=== PATIENT | male | born 1925 | race Caucasian/White ===

== ENCOUNTER 2017-05-06 08:15 | Inpatient (IN) | payer MEDICARE ==
[2017-05-06 09:08] LABS: #Lymphocytes 0.5 thou/uL (1.20-3.40); #Monocytes 0.4 thou/uL (0.11-0.59); #Neutrophils 5.7 thou/uL (1.40-6.50); %Basophils 0.1 % (0.0-1.0); %Eosinophils 0.2 % (0.0-10.0); %Lymphocytes 7.1 % (21.0-51.0); %Monocytes 6.4 % (0.0-10.0); %Neutrophils 86.2 % (42.0-75.0); Hemoglobin 9.4 g/dL (14.0-18.0); Mean Corpuscular Hemoglobin 32.1 pg (27.0-31.0); Mean Corpuscular Volume 97.4 fl (80.0-94.0); Platelet Count 121 thou/uL (130-400); Red Blood Cell (RBC) Count 2.91 mill/uL (4.70-6.10); White Blood Cell (WBC) Count 6.6 thou/uL (4.8-10.8)
[2017-05-06 09:18] LABS: INR-International Normal Ratio 3.6; PTT 61.4 SEC (22.9-36.1); Prothrombin Time 37.6 SEC (12.0-14.7)
[2017-05-06 09:26] LABS: ALT (SGPT) 24 U/L (8-55); AST (SGOT) 32 U/L (5-34); Albumin 3.5 g/dL (3.4-4.8); Alkaline Phosphatase 81 U/L (40-150); Anion Gap 17 mmol/L (10-20); BUN (Urea Nitrogen) 30 mg/dL (8.4-25.7); Bilirubin, Total 0.7 mg/dL (0.2-1.2); CK (CPK) 278 U/L (30-200); Calc. Creatinine Clearance 0 mL/min (70-130); Carbon Dioxide 20 mmol/L (23-31); Chloride 106 mmol/L (98-107); Estimated GFR-MDRD 40; Globulin 3.2 g/dL (2.4-3.5); Glucose 137 mg/dL (83-110); Potassium 3.9 mmol/L (3.5-5.1); Protein, Total 6.7 g/dL (5.8-8.1); Sodium 139 mmol/L (136-145)
[2017-05-06 09:31] LABS: CKMB 4.4 ng/mL (0-6.6); Troponin I 0.292 ng/mL (< 0.028)
--- NOTE | 2017-05-06 09:48 | RAD ---
AP VIEW OF THE CHEST: INDICATIONS: Cough. FINDINGS: There is somewhat increased air space opacity within the retrocardiac left lower lobe with blunting o f the left costophrenic angle. There are patchy opacities within the right lung base. Heart size is at the upper limits of normal. Pulmonary vasculature is within normal limits. No acute osseous abn ormality is evident. IMPRESSION: 1. Patchy opacities involving both lung bases, left greater than right. Suspicion for a small left pleural effusion. Findings may reflect sequela of bibasilar pneumonia with a parapneumonic left-side d effusion. Would recommend a two view radiograph for further evaluation. 2. Stable mild cardiomegaly, when compared to prior study dated 01/31/2016. POS: [facility]
[2017-05-06] MEDS ORDERED: Azithromycin 500 MG in Sodium Chloride 0.9% 250 ML 250 ML IVPB ONE (11:15)
[2017-05-06 11:55] LABS: Bilirubin Negative (Negative); Blood, Urine Negative (Negative); Clarity CLEAR (Clear); Glucose, Urine (Dipstick) Negative (Negative); Leukocyte Negative (Negative); Nitrite Negative (Negative); Protein, Urine (Dipstick) Negative (Neg-Trace); Specific Gravity, Urine 1.018 (1.002-1.036); Urobilinogen 0.2 mg/dL (0.2-1.0); pH, Urine 5.5 (5.0-9.0)
[2017-05-06 12:42] LABS: Troponin I 0.363 ng/mL (< 0.028)
[2017-05-06 15:36] LABS: Lactic Acid 1.5 mmol/L (0.5-2.2)
[2017-05-06 16:02] LABS: Troponin I 0.624 ng/mL (< 0.028)
[2017-05-06] MEDS ORDERED: Bisacodyl 5 MG TAB PO PRN (18:14)
[2017-05-06] MEDS ORDERED: Acetaminophen 325 MG TAB PO PRN (18:14)
[2017-05-06] MEDS ORDERED: cefTRIAXone\\ROCEPHIN 1 GM in Sodium Chloride 0.9% 100 ML IVPB SCH (18:14)
[2017-05-06] MEDS ORDERED: Ondansetron ODT 4 MG TAB PO PRN (18:14)
[2017-05-06] MEDS ORDERED: Nitroglycerin 0.4 MG TAB (25 Tab Bottle) PO PRN (18:14)
[2017-05-06] MEDS ORDERED: Ondansetron HCl/PF 4 MG/2 ML Vial IVP PRN (18:14)
[2017-05-06] MEDS ORDERED: Acetaminophen 650 MG Suppository PR PRN (18:14)
[2017-05-06 18:16] VITALS: BMI 23.4
--- NOTE | 2017-05-06 18:31 | HP ---
PRIMARY CARE PHYSICIAN: Dr. Magaña. PRIMARY LENDING ACTIVITIES SUPERVISOR: Dr. Monatnez CHIEF COMPLAINT: Feeling bad and prolonged cough. HISTORY OF PRESENT ILLNESS: This is an 89-year-old white male with a known history of congestive hea rt failure; ischemic cardiomyopathy with inoperable coronary artery disease; atrial fibrillation, on Coumadin anticoagulation, who presents with progressive cough over about 1 month. He reports that it was just niggling until the last couple of weeks he has been getting significantly worse and product francisco of clear sputum. The patient decided to take some [id number] cough medicine over the weeke . After he took that an hour later he developed nausea, feeling really bad, and then he has just b een continuing to feel bad since then. Today, he reports that he continued to have the cough, but no nausea and just felt bad. He was unable to describe what he meant by feeling bad. He had been feel ing a little weaker than normal over the last couple of weeks, so he came into the emergency room. I n the ER, he was found to be hypoxic on room air and saturating initially 82% and came up well with n connie cannula oxygen. He was also found to be in rapid ventricular rate with a heart rate of 125. He was afebrile. Chest x-ray showed patchy opacities in bilateral lungs, left greater than right, susp icion for a small left pleural effusion. This is consistent with bibasilar pneumonia, mild cardiomeg aldo, and no evidence of pulmonary edema. The patient was given ceftriaxone and azithromycin in the e mergency room. His heart rate came down to 85 with the oxygen. No rate control meds had to be given . PAST MEDICAL HISTORY: 1. Chronic systolic congestive heart failure with an ejection fraction of 15% to 20%, most recent ec hocardiogram from 01/2016. 2. Coronary artery disease with 100% occlusion of LAD, nonoperable per previous cardiology notes. M edically managed. 3. Chronic atrial fibrillation, on Coumadin. 4. Hypertension. 5. Hyperlipidemia. 6. Hypothyroidism. PAST SURGICAL HISTORY: Skin cancer excision, bilateral inguinal hernia repair. ALLERGIES: No known drug allergies. MEDICATIONS: The patient does not have his current medications with him at this time. Reviewing fro m the computer. He has most recently been on, 1. Hydralazine 25 mg 3 times a day. 2. Warfarin 5 mg daily, except on Friday, Friday, and Friday when he takes 7.5. 3. Valsartan 80 mg daily. 4. Flomax 0.4 mg daily. 5. Aldactone 25 mg daily. 6. Ranexa 1000 mg twice a day. 7. Omeprazole 20 mg daily. 8. Nitrostat 0.4 mg every 5 minutes as needed for chest pain. 9. Synthroid 25 mcg daily. 10. Imdur ER 30 mg daily. 11. Furosemide 40 mg twice a day. 12. Ferrous sulfate 325 mg daily. 13. Carvedilol 6.25 mg twice a day. 14. Atorvastatin 40 mg at night. 15. Aspirin 81 mg daily. SOCIAL HISTORY: The patient lives at home, ambulates with the help of the cane. No tobacco, alcohol or illicit drug use. FAMILY HISTORY: Heart disease in older age. REVIEW OF SYSTEMS: CONSTITUTIONAL: He had some fevers and chills in the last few days, but never took his temperature. EYES: No double vision or blurred vision. HEENT: He has had congestion and drainage worse over the last few days, dry but not sore throat. CARDIOVASCULAR: No chest pain. No palpitations that he has noted. PULMONARY: See HPI. No significant shortness of breath in the emergency room, now on oxygen. GASTROINTESTINAL: No abdominal pain, nausea over the weekend as per HPI, none currently. No diarrhe a or constipation. GENITOURINARY: No dysuria or hematuria. MUSCULOSKELETAL: No specifically worse muscle aches or joint pains. SKIN: No rashes or other lesions noted. NEUROLOGIC: Some generalized weakness, but no focal weakness. No numbness or tingling. PHYSICAL EXAMINATION: VITAL SIGNS: Blood pressure 111/59, pulse 85, respirations 26, O2 sat 98% on says room air, but he i s actually on oxygen currently, temperature 98.2. GENERAL: This is a well-developed, well-nourished white male, in no acute distress. EYES: Pupils are equal, round, and reactive to light. 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 ENT: Nares clear. Oropharynx clear without lesions, erythema, or exudate. NECK: Supple, no lymphadenopathy, no thyroid nodules or enlargement, no JVD. HEART: Irregularly irregular rhythm, controlled rate currently. No murmurs. LUNGS: No wheezes, crackles, or rhonchi. Moving air well throughout. No increased work of breathin g on the oxygen. ABDOMEN: Nontender to palpation, normoactive bowel sounds, no hepatosplenomegaly or other masses. S oft to palpation. EXTREMITIES: No clubbing or cyanosis. He does have 1+ pitting edema in bilateral lower extremities. The patient states actually good for him and he gets a lot worse if he gets fluid overloaded. SKIN: No rashes or other lesions noted. NEUROLOGIC: He has intact strength in all extremities and no facial droop. LABORATORY DATA: CBC with hemoglobin of 9.4 with an MCV mildly high at 97. This is consistent with his baseline hemoglobin, no leukocytosis, platelet count mildly low at 121. Coagulation profile show s an INR of 3.6. Complete metabolic panel was notable for creatinine of 1.63. This is above his pre vious baseline usually around 1.2-1.3 range, creatinine is normal. Creatinine kinase is 278. CK-MB is normal. First troponin was 0.29, repeat was 0.36. Brain natriuretic peptide is 2700, which is el evated thousand more than his last admission. Urinalysis negative. Chest x-ray: I did review the c [facility] x-ray along with the radiologist's report see HPI for results. EKG: I did review the EKG done in the emergency room, it does show atrial fibrillation at a rate of 97 beats per minute with some le ft bundle branch block. This is a change from his incomplete left bundle branch block in 2016 and wa s also normal sinus rhythm per previous ER note. This is a change from his previous EKG which showed incomplete left bundle branch block per 2016 ER note. Now, I am unable to pull up the old EKG at th is time. ASSESSMENT AND PLAN: 1. Community-acquired pneumonia with hypoxia and put patient on Rocephin, azithromycin, and continue oxygen. We will give him nebs as needed. 2. Chronic systolic congestive heart failure with likely exacerbation given his elevated BNP and hyp oxia. This might be due to worsening renal function. For now, we will fluid restrict him and we viki l give him his oral Lasix as well, knows his blood pressure could tolerate any further more aggressiv e diuresis other than this. Also, have Dr. Clayton sees patient for Dr. Montanez and see if he wants to try more aggressive diuresis. We will put patient on fluid restriction and salt restriction and mallory vogt will do strict I's and O's and daily weights. Given the patient's rapid heart rate, we will go ahe ad and continue his carvedilol along with his nitrates and Ranexa. 3. Coronary artery disease, chronic. 4. Non-ST elevation myocardial infarction. Dr. Clayton has been consulted and knows about the increa sing troponin. The patient by history is nonoperable and we will likely has to medically managed. Marie vogt has already received aspirin in the emergency room. 5. Atrial fibrillation with rapid ventricular rate, this has improved, with control of his hypoxia. We will continue patient's chronic medications. He is supratherapeutic on his Coumadin, so hold fredrick t for now and check daily INRs and resume his Coumadin when his level comes back down to between 2 an d 3. 6. GI prophylaxis, put patient on Pepcid twice a day. 7. Deep venous thrombosis prophylaxis. The patient is already anticoagulated. 8. Code status. I did discuss with the patient. He is a FULL CODE should he be incapacitated. His son would be his medical decision maker his name, Pepe Urbina.
[2017-05-06] MEDS ORDERED: Carvedilol 6.25 MG TAB PO SCH (19:30)
--- NOTE | 2017-05-06 20:52 | CON ---
DATE OF CONSULTATION: 05/06/2017 PRIMARY BRAKE COUPLER DINKEY: Dr. Montanez. REASON FOR CONSULTATION: Elevated troponins and heart failure. HISTORY OF PRESENT ILLNESS: Mr. Urbina is a very pleasant 89-year-old white gentleman who comes to [facility] for increased cough and shortness of breath. He has a significant history of ischemic ca rdiomyopathy, not amenable to any revascularization at that time with EF of about 20%. He stated for the last few days he has been complaining of a progressive cough productive of clear sputum. He too k some cough medicine and did not really help, just got worse, so decided to come in for evaluation. He was found to have what appears to be multifocal pneumonia and admitted for further evaluation and care. His BNP is much higher than what it has been in the past. The patient has also had subjectiv e fevers. PAST MEDICAL HISTORY: 1. Severe chronic systolic heart failure, EF of about 15-20%. 2. Severe multivessel coronary artery disease, inoperable and non-revascularizable. 3. Chronic atrial fibrillation on full anticoagulation, on Coumadin. 4. Hypertension. 5. Hyperlipidemia. 6. Hypothyroidism. PAST SURGICAL HISTORY: 1. Skin cancer excision. 2. Bilateral inguinal hernia repair. OUTPATIENT MEDICATIONS: 1. Hydralazine 25 mg t.i.d. 2. Warfarin. 3. Valsartan 80 mg a day. 4. Flomax 0.4 mg a day. 5. Aldactone 25 mg a day. 6. Ranexa 1000 mg twice a day. 7. Omeprazole. 8. Nitroglycerin sublingual. 9. Synthroid 25 mcg a day. 10. Imdur 30 mg a day. 11. Lasix 40 mg twice a day. 12. Ferrous sulfate. 13. Carvedilol 6.25 b.i.d. 14. Atorvastatin 40 mg a day. 15. Aspirin 81 a day. ALLERGIES: No known drug allergies. SOCIAL HISTORY: No alcohol, tobacco or drugs. FAMILY HISTORY: Noncontributory. REVIEW OF SYSTEMS: A 12-point review of systems was done and is all negative unless stated in the hi story of present illness. PHYSICAL EXAMINATION: VITAL SIGNS: Temperature 98.5, pulse 81, respiratory rate 24, satting 100% on 2 liters, blood pressu re 130/76. GENERAL: Awake, alert, oriented x3, in no distress. HEENT: Normocephalic, atraumatic. NECK: Supple. LUNGS: Lungs have bilateral crackles. CARDIOVASCULAR: S1, S2, no S3 or S4, no murmurs. ABDOMEN: Soft, positive bowel sounds. EXTREMITIES: Trace edema. SKIN: Warm and dry. LABORATORY WORK: Reviewed. White count of 6, hemoglobin 9.4, hematocrit 28, platelet count 121. Co ags were INR is 3.6. Chemistries remarkable only for a BUN of 30, creatinine 1.63, which is a little higher than his baseline. Troponin was 0.3 and then 0.6. BNP was 2760, baseline is around 500, it has been as high as 2200 in the past with exacerbations. Lactic acid was normal. UA was unremarkabl e. EKG was reviewed. ASSESSMENT AND PLAN: 1. Acute on chronic systolic heart failure. 2. Multilobar pneumonia. 3. Ischemic cardiomyopathy, severe. 4. Severe dilated cardiomyopathy, ejection fraction of of 15-20%. PLAN: 1. I would give IV Lasix for the next 1 or 2 days. We will see how he does in the next couple of da ys, he probably is somewhat volume overload. 2. IV antibiotics per primary team. 3. We will continue to follow.
[2017-05-06] MEDS: Docusate 100 MG CAP PO SCH (21:33)
[2017-05-06] MEDS: Famotidine 20 MG TAB PO SCH (21:33)
[2017-05-07 05:38] LABS: Anion Gap 15 mmol/L (10-20); BUN (Urea Nitrogen) 36 mg/dL (8.4-25.7); Calc. Creatinine Clearance 31 mL/min (70-130); Calcium 8.7 mg/dL (7.8-10.44); Carbon Dioxide 20 mmol/L (23-31); Chloride 107 mmol/L (98-107); Estimated GFR-MDRD 40; Glucose 127 mg/dL (83-110); Potassium 3.8 mmol/L (3.5-5.1); Sodium 138 mmol/L (136-145)
[2017-05-07 05:48] LABS: #Lymphocytes 0.5 thou/uL (1.20-3.40); #Monocytes 0.4 thou/uL (0.11-0.59); #Neutrophils 3.4 thou/uL (1.40-6.50); %Eosinophils 0.2 % (0.0-10.0); %Lymphocytes 11.2 % (21.0-51.0); %Monocytes 9.4 % (0.0-10.0); %Neutrophils 79.3 % (42.0-75.0); Hemoglobin 8.3 g/dL (14.0-18.0); Mean Corpuscular HGB CONC 33.6 g/dL (32.0-36.0); Mean Corpuscular Hemoglobin 32.8 pg (27.0-31.0); Mean Corpuscular Volume 97.7 fl (80.0-94.0); Mean Platelet Volume 10.2 fL (7.4-10.4); Platelet Count 104 thou/uL (130-400); Red Blood Cell (RBC) Count 2.53 mill/uL (4.70-6.10); White Blood Cell (WBC) Count 4.3 thou/uL (4.8-10.8)
[2017-05-07] MEDS: Furosemide 40 MG/4 ML VIAL SLOW IVP SCH ×2 (06:07→13:21)
[2017-05-07 06:22] LABS: Prothrombin Time 44.7 SEC (12.0-14.7)
[2017-05-07 06:43] LABS: INR-International Normal Ratio 4.4
--- NOTE | 2017-05-07 08:08 | PDOC.PN ---
- Subjective Encounter Start Date: 05/07/17 Encounter Start Time: 09:00 Subjective: Patient feeling a bit better. SOB improved. Cough a bit better. - Objective Resuscitation Status: Resuscitation Status FULL:Full Resuscitation MAR Reviewed: Yes Vital Signs & Weight: Vital Signs (12 hours) Temp Pulse Resp BP BP Pulse Ox 05/07/17 07:18 97.7 F 74 18 119/74 93 L 05/07/17 03:57 97.6 F 65 24 H 113/69 93 L 05/07/17 00:08 98.9 F 80 24 H 124/70 90 L 05/06/17 23:14 99 05/06/17 21:33 121/69 Weight Weight 156 lb 8 oz I&O: 05/06/17 05/07/17 05/08/17 06:59 06:59 06:59 Intake Total 524 Output Total 250 Balance 274 Result Diagrams: 05/07/17 05:06 05/07/17 05:06 Phys Exam - Physical Examination Constitutional: NAD HEENT: moist MMs bibasilar crackles and rhonchi, good air movement, off O2 and no SOB Cardiovascular: no significant murmur, irregular Gastrointestinal: soft, non-tender, positive bowel sounds Neurological: non-focal, moves all 4 limbs Psychiatric: normal affect, A&O x 3 Deviation from normal: large scabbed lesion on right ear- skin cancer per patient Dx/Plan (1) Pneumonia Code(s): J18.9 - PNEUMONIA, UNSPECIFIED ORGANISM Status: Acute Qualifiers: Laterality: bilateral Lung location: lower lobe of lung Comment: Rocephin and Azithromycin beginning 05/06/17 (2) Systolic CHF, acute on chronic Code(s): I50.23 - ACUTE ON CHRONIC SYSTOLIC (CONGESTIVE) HEART FAILURE Status : Acute Comment: IV diuretics, Dr. Clayton following (3) Ischemic cardiomyopathy Code(s): I25.5 - ISCHEMIC CARDIOMYOPATHY Status: Acute (4) CAD (coronary artery disease) Code(s): I25.10 - ATHSCL HEART DISEASE OF [place] CORONARY ARTERY W/O ANG PCTRS Status: Chronic Qualifiers: Coronary Disease-Associated Artery/Lesion type: [place] artery Comment: Completely occluded LAD, inoperable (5) Atrial fibrillation Code(s): I48.91 - UNSPECIFIED ATRIAL FIBRILLATION Status: Chronic Qualifiers: Atrial fibrillation type: chronic Qualified Code(s): I48.2 - Chronic atrial fibrillation (6) Anticoagulant long-term use Code(s): Z79.01 - PAPER TESTER (CURRENT) USE OF ANTICOAGULANTS Status: Chronic Comment: Supratherapeutic, holding Coumadin (7) Acute on chronic renal failure Code(s): N17.9 - ACUTE KIDNEY FAILURE, UNSPECIFIED; N18.9 - CHRONIC KIDNEY DISEASE, UNSPECIFIED Status: Acute Comment: stable - Plan cont current plan of care, continue antibiotics, PT/OT, DVT proph w/SCDs Improving, doing well on room air. If continues to improve can switch to -: oral antibiotics tomorrow and d/c when ok with cardiology. * . - Discharge Day Encounter end time: 09:30
[2017-05-07] MEDS: Carvedilol 6.25 MG TAB PO SCH ×2 (08:48→17:30)
[2017-05-07] MEDS: Docusate 100 MG CAP PO SCH ×2 (08:49→21:17)
[2017-05-07] MEDS ORDERED: Furosemide 40 MG TAB PO SCH (09:00)
[2017-05-07] MEDS ORDERED: Enoxaparin Sodium 40 MG/0.4 ML SYRINGE SC SCH (09:00)
[2017-05-07] MEDS ORDERED: cefTRIAXone\\ROCEPHIN 1 GM, Syringe 0.4 ML in Sterile Water 9.6 ML SLOW IVP SCH (11:00)
--- NOTE | 2017-05-07 12:52 | PDOC.CTH ---
Cardiology Progress Note - Subjective No new issues. - Objective Vital Signs Temp Pulse Pulse Pulse Resp BP BP 05/07/17 11:20 97.6 F 62 23 H 05/07/17 10:00 66 70 100/54 L 05/07/17 08:48 119/74 05/07/17 08:00 97.7 F 74 18 05/07/17 07:18 97.7 F 74 18 05/07/17 03:57 97.6 F 65 24 H BP BP Pulse Ox 05/07/17 11:20 103/55 L 92 L 05/07/17 10:00 101/59 L 05/07/17 08:48 05/07/17 08:00 93 L 05/07/17 07:18 119/74 93 L 05/07/17 03:57 113/69 93 L Weight 156 lb 8 oz 05/06/17 05/07/17 05/08/17 06:59 06:59 06:59 Intake Total 524 Output Total 250 Balance 274 - Physical Examination General/Neuro: NAD Neck: no JVD present Lungs: other: (bilat crackles. ) Heart: other: Abdomen: soft Extremities: other: (no edema) - Telemetry Telemetry Rhythm: Afib HR 90's. - Labs Result Diagrams: 05/07/17 05:06 05/07/17 05:06 Troponin/CKMB CK-MB (CK-2) 4.4 ng/mL (0-6.6) 05/06/17 08:58 Troponin I 0.624 ng/mL (< 0.028) H* 05/06/17 15:10 - Assessment/Plan 1. Multilobar pneumonia 2. Acute on chronic systolic heart failure. 3. Severe ischemic CM EF at 15-20% 4. Chronic afib. 5. Multivessel CAD non revascularizable. PLAN: - Continue IV lasix. - Continue other meds - IV abx per primary team.
[2017-05-07] MEDS ORDERED: Azithromycin 500 MG in Sodium Chloride 0.9% 250 ML 250 ML IVPB SCH (13:00)
[2017-05-07] MEDS ORDERED: diphenhydrAMINE 25 MG CAP PO PRN (14:21)
[2017-05-07] MEDS: Chloraseptic Spray 180 ml Bottle PO PRN ×3 (15:20→21:17)
[2017-05-07] MEDS: Famotidine 20 MG TAB PO SCH (21:17)
[2017-05-08 05:01] LABS: Prothrombin Time 48.5 SEC (12.0-14.7)
[2017-05-08 05:08] LABS: #Lymphocytes 0.6 thou/uL (1.20-3.40); #Monocytes 0.5 thou/uL (0.11-0.59); #Neutrophils 4.2 thou/uL (1.40-6.50); %Eosinophils 0.3 % (0.0-10.0); %Lymphocytes 10.8 % (21.0-51.0); %Monocytes 10.1 % (0.0-10.0); %Neutrophils 78.9 % (42.0-75.0); Hemoglobin 8.5 g/dL (14.0-18.0); Mean Corpuscular HGB CONC 34.1 g/dL (32.0-36.0); Mean Corpuscular Hemoglobin 33.2 pg (27.0-31.0); Mean Corpuscular Volume 97.4 fl (80.0-94.0); Mean Platelet Volume 10.5 fL (7.4-10.4); Platelet Count 110 thou/uL (130-400); RBC Distribution Width 12.2 % (11.5-14.5); Red Blood Cell (RBC) Count 2.55 mill/uL (4.70-6.10); White Blood Cell (WBC) Count 5.3 thou/uL (4.8-10.8)
[2017-05-08 05:17] LABS: INR-International Normal Ratio 4.9
[2017-05-08 05:20] LABS: Anion Gap 15 mmol/L (10-20); BUN (Urea Nitrogen) 47 mg/dL (8.4-25.7); Calc. Creatinine Clearance 24 mL/min (70-130); Calcium 8.5 mg/dL (7.8-10.44); Carbon Dioxide 21 mmol/L (23-31); Chloride 105 mmol/L (98-107); Estimated GFR-MDRD 30; Glucose 105 mg/dL (83-110); Potassium 3.8 mmol/L (3.5-5.1); Sodium 137 mmol/L (136-145)
[2017-05-08] MEDS: Furosemide 40 MG/4 ML VIAL SLOW IVP SCH ×2 (05:50→13:22)
[2017-05-08] MEDS ORDERED: Acetaminophen 325 MG TAB PO PRN (07:27)
--- NOTE | 2017-05-08 07:30 | PDOC.PN ---
- Subjective Encounter Start Date: 05/08/17 Encounter Start Time: 09:00 Subjective: Continued severe cough. Very weak and will need rehab/PT before discharge. -: No fever. No sig SOB. Sating well on room air. - Objective Resuscitation Status: Resuscitation Status FULL:Full Resuscitation MAR Reviewed: Yes Vital Signs & Weight: Vital Signs (12 hours) Temp Pulse Resp BP Pulse Ox 05/08/17 03:39 98.0 F 71 20 115/77 95 05/07/17 23:29 97.9 F 64 24 H 117/68 95 05/07/17 22:16 71 16 98 05/07/17 20:04 97.9 F 64 24 H 98 Weight Weight 156 lb 8 oz I&O: 05/07/17 05/08/17 05/09/17 06:59 06:59 06:59 Intake Total 524 184 Output Total 250 750 Balance 274 -566 Result Diagrams: 05/08/17 04:29 05/08/17 04:29 Phys Exam - Physical Examination Constitutional: NAD HEENT: moist MMs Respiratory: no wheezing, no rhonchi multiple coughing fits in room, mild coarse breath sounds in bases Cardiovascular: RRR Gastrointestinal: soft Neurological: non-focal, moves all 4 limbs Psychiatric: normal affect, A&O x 3 Deviation from normal: skin cancer to right ear Dx/Plan (1) Pneumonia Code(s): J18.9 - PNEUMONIA, UNSPECIFIED ORGANISM Status: Acute Qualifiers: Laterality: bilateral Lung location: lower lobe of lung Comment: Rocephin and Azithromycin beginning 05/06/17, switch to oral abx 05/08/17 (2) Systolic CHF, acute on chronic Code(s): I50.23 - ACUTE ON CHRONIC SYSTOLIC (CONGESTIVE) HEART FAILURE Status : Acute Comment: IV diuretics, Dr. Clayton following (3) Ischemic cardiomyopathy Code(s): I25.5 - ISCHEMIC CARDIOMYOPATHY Status: Acute (4) CAD (coronary artery disease) Code(s): I25.10 - ATHSCL HEART DISEASE OF [place] CORONARY ARTERY W/O ANG PCTRS Status: Chronic Qualifiers: Coronary Disease-Associated Artery/Lesion type: [place] artery Comment: Completely occluded LAD, inoperable (5) Atrial fibrillation Code(s): I48.91 - UNSPECIFIED ATRIAL FIBRILLATION Status: Chronic Qualifiers: Atrial fibrillation type: chronic Qualified Code(s): I48.2 - Chronic atrial fibrillation (6) Anticoagulant long-term use Code(s): Z79.01 - INTERMEDIATE (CURRENT) USE OF ANTICOAGULANTS Status: Chronic Comment: Supratherapeutic, holding Coumadin, trending up inspite of no meds (7) Acute on chronic renal failure Code(s): N17.9 - ACUTE KIDNEY FAILURE, UNSPECIFIED; N18.9 - CHRONIC KIDNEY DISEASE, UNSPECIFIED Status: Acute Comment: creatinine starting to bump, consider switch back to oral diuretics - Plan cont current plan of care, continue antibiotics, PT/OT Will need rehab/SNF before home. * . - Discharge Day Encounter end time: 09:30
[2017-05-08] MEDS: Carvedilol 6.25 MG TAB PO SCH ×2 (08:44→16:23)
[2017-05-08] MEDS: Spironolactone 25 MG TAB PO SCH (08:45)
[2017-05-08] MEDS: Azithromycin 250 MG TAB PO SCH (08:45)
[2017-05-08] MEDS: Tamsulosin HCl 0.4 MG CAP PO SCH (08:45)
[2017-05-08] MEDS: Docusate 100 MG CAP PO SCH ×2 (08:45→21:15)
[2017-05-08] MEDS: Cefdinir 300 MG CAP PO SCH ×2 (08:45→21:16)
[2017-05-08] MEDS: Chloraseptic Spray 180 ml Bottle PO PRN (08:55)
[2017-05-08] MEDS ORDERED: Levothyroxine Sodium 25 MCG TAB PO SCH (11:00)
[2017-05-08] MEDS: Famotidine 20 MG TAB PO SCH (21:16)
[2017-05-08] MEDS: guaiFENesin ER 600 MG TAB PO SCH (21:17)
[2017-05-08] MEDS: Atorvastatin Calcium 40 MG TAB PO SCH (21:18)
[2017-05-09 05:20] LABS: Prothrombin Time 44.1 SEC (12.0-14.7)
[2017-05-09 05:30] LABS: INR-International Normal Ratio 4.4
[2017-05-09] MEDS ORDERED: Levothyroxine Sodium 25 MCG TAB PO SCH (06:00)
[2017-05-09] MEDS ORDERED: Carvedilol 3.125 MG TAB PO SCH (09:15)
[2017-05-09 09:25] LABS: Anion Gap 17 mmol/L (10-20); BUN (Urea Nitrogen) 44 mg/dL (8.4-25.7); Calc. Creatinine Clearance 26 mL/min (70-130); Calcium 8.7 mg/dL (7.8-10.44); Carbon Dioxide 17 mmol/L (23-31); Chloride 104 mmol/L (98-107); Estimated GFR-MDRD 32; Glucose 110 mg/dL (83-110); Potassium 4.4 mmol/L (3.5-5.1); Sodium 134 mmol/L (136-145)
[2017-05-09] MEDS: Tamsulosin HCl 0.4 MG CAP PO SCH (09:33)
[2017-05-09] MEDS: Docusate 100 MG CAP PO SCH ×2 (09:33→21:04)
[2017-05-09] MEDS: Cefdinir 300 MG CAP PO SCH ×2 (09:34→21:06)
[2017-05-09] MEDS: Spironolactone 25 MG TAB PO SCH (09:34)
[2017-05-09] MEDS: Azithromycin 250 MG TAB PO SCH (09:34)
[2017-05-09] MEDS: guaiFENesin ER 600 MG TAB PO SCH ×2 (09:34→21:06)
--- NOTE | 2017-05-09 10:02 | PDOC.PN ---
- Subjective Encounter Start Date: 05/09/17 Encounter Start Time: 10:01 Subjective: Seen and examined -flipped into R.Afib this morning - Objective Resuscitation Status: Resuscitation Status FULL:Full Resuscitation Vital Signs & Weight: Vital Signs (12 hours) Temp Pulse Resp BP Pulse Ox 05/09/17 07:20 97.5 F L 140 H 20 100/69 97 05/09/17 03:53 97.8 F 72 22 H 115/70 92 L 05/08/17 23:56 97.8 F 67 26 H 108/66 95 Weight Weight 159 lb I&O: 05/08/17 05/09/17 05/10/17 06:59 06:59 06:59 Intake Total 524 1234 Output Total 250 752 Balance 274 482 Result Diagrams: 05/08/17 04:29 05/09/17 09:00 Phys Exam - Physical Examination Constitutional: NAD HEENT: PERRLA, moist MMs, sclera anicteric, TM's clear Neck: no nodes, no JVD, supple, full ROM Respiratory: no wheezing, no rales, no rhonchi, clear to auscultation bilateral Cardiovascular: no significant murmur, no rub, irregular Gastrointestinal: soft, non-tender, no distention, positive bowel sounds Dx/Plan (1) Acute on chronic renal failure Code(s): N17.9 - ACUTE KIDNEY FAILURE, UNSPECIFIED; N18.9 - CHRONIC KIDNEY DISEASE, UNSPECIFIED Status: Acute Comment: creatinine starting to bump, consider switch back to oral diuretics (2) Ischemic cardiomyopathy Code(s): I25.5 - ISCHEMIC CARDIOMYOPATHY Status: Acute (3) Pneumonia Code(s): J18.9 - PNEUMONIA, UNSPECIFIED ORGANISM Status: Acute Qualifiers: Laterality: bilateral Lung location: lower lobe of lung Comment: Rocephin and Azithromycin beginning 05/06/17, switch to oral abx 05/08/17 (4) Systolic CHF, acute on chronic Code(s): I50.23 - ACUTE ON CHRONIC SYSTOLIC (CONGESTIVE) HEART FAILURE Status : Acute Comment: IV diuretics, Dr. Clayton following (5) Anticoagulant long-term use Code(s): Z79.01 - APPLICATION INTEGRATOR (CURRENT) USE OF ANTICOAGULANTS Status: Chronic Comment: Supratherapeutic, holding Coumadin, trending up inspite of no meds (6) Atrial fibrillation Code(s): I48.91 - UNSPECIFIED ATRIAL FIBRILLATION Status: Chronic Qualifiers: Atrial fibrillation type: chronic Qualified Code(s): I48.2 - Chronic atrial fibrillation (7) CAD (coronary artery disease) Code(s): I25.10 - ATHSCL HEART DISEASE OF [place] CORONARY ARTERY W/O ANG PCTRS Status: Chronic Qualifiers: Coronary Disease-Associated Artery/Lesion type: [place] artery Comment: Completely occluded LAD, inoperable - Plan plan discussed w/ family, PT/OT, social service coordinator INR trending down -: Rehab evaluation today -: Cardiology following * .
[2017-05-09] MEDS: Benzonatate 100 MG CAP PO PRN ×2 (11:53→21:05)
[2017-05-09] MEDS: Carvedilol 3.125 MG TAB PO SCH (16:24)
[2017-05-09] MEDS: Famotidine 20 MG TAB PO SCH (21:06)
[2017-05-09] MEDS: Atorvastatin Calcium 40 MG TAB PO SCH (21:06)
[2017-05-10 05:11] LABS: INR-International Normal Ratio 3.2; Prothrombin Time 34.4 SEC (12.0-14.7)
[2017-05-10 07:56] LABS: Actual Bicarbonate (HCO3a) 19.2 mEq/L (22-26); CO2 Tension 36.6 mmHg (35.0-45.0); Calcium, Ionized 1.1 mmol/L (1.12-1.30); Hematocrit-ABG 33.3 % (42.0-52.0); O2 Tension (PaO2) 63.7 mmHg (80.0-100.0); pH, Arterial 7.34 (7.35-7.45)
[2017-05-10 07:57] LABS: Puncture Site RBA
[2017-05-10] MEDS ORDERED: Furosemide 40 MG/4 ML VIAL SLOW IVP SCH ×2 (08:00→10:45)
[2017-05-10] MEDS ORDERED: Morphine 4 MG/ML VIAL ONE (08:18)
[2017-05-10 08:30] LABS: #Lymphocytes 1.4 thou/uL (1.20-3.40); #Monocytes 0.7 thou/uL (0.11-0.59); #Neutrophils 9.4 thou/uL (1.40-6.50); %Eosinophils 0.1 % (0.0-10.0); %Lymphocytes 11.9 % (21.0-51.0); %Monocytes 5.8 % (0.0-10.0); %Neutrophils 82.2 % (42.0-75.0); Mean Corpuscular Hemoglobin 31.5 pg (27.0-31.0); Mean Corpuscular Volume 98.3 fl (80.0-94.0); Mean Platelet Volume 10.7 fL (7.4-10.4); Platelet Count 189 thou/uL (130-400); RBC Distribution Width 12.6 % (11.5-14.5); White Blood Cell (WBC) Count 11.5 thou/uL (4.8-10.8)
[2017-05-10 08:51] LABS: Anion Gap 16 mmol/L (10-20); BUN (Urea Nitrogen) 47 mg/dL (8.4-25.7); Calc. Creatinine Clearance 25 mL/min (70-130); Calcium 9.1 mg/dL (7.8-10.44); Carbon Dioxide 21 mmol/L (23-31); Chloride 102 mmol/L (98-107); Estimated GFR-MDRD 31; Glucose 143 mg/dL (83-110); Sodium 135 mmol/L (136-145)
[2017-05-10] MEDS ORDERED: Nitroglycerin 2% Ointment 1 INCH/1 GM Packet TOP SCH (09:00)
[2017-05-10] MEDS ORDERED: Furosemide 40 MG/4 ML VIAL ONE (09:09)
[2017-05-10 09:11] LABS: CKMB 7.1 ng/mL (0-6.6); Troponin I 0.723 ng/mL (< 0.028)
[2017-05-10] MEDS: Spironolactone 25 MG TAB PO SCH (09:14)
[2017-05-10] MEDS: Azithromycin 250 MG TAB PO SCH (09:14)
[2017-05-10] MEDS: guaiFENesin ER 600 MG TAB PO SCH ×2 (09:14→22:17)
[2017-05-10] MEDS: Tamsulosin HCl 0.4 MG CAP PO SCH (09:14)
[2017-05-10] MEDS: Carvedilol 3.125 MG TAB PO SCH ×2 (09:14→17:09)
[2017-05-10] MEDS: Cefdinir 300 MG CAP PO SCH ×2 (09:14→22:17)
[2017-05-10] MEDS: Docusate 100 MG CAP PO SCH ×2 (09:14→22:17)
--- NOTE | 2017-05-10 10:02 | RAD ---
FRONTAL VIEW CHEST: COMPARISON: 05/06/17. CLINICAL HISTORY: Respiratory distress. FINDINGS: There is a patchy density of the right lower lung zone. Interstitial prominence of each lung present . The cardiac silhouette is stable. Prior left basilar opacity has improved. IMPRESSION: 1. Interval improvement of prior left basilar opacity. 2. Development of a patchy opacity of the right lower lung zone. Continued followup is recommended as findings could either relate to areas of shift in edema or a newly developing area of pneumonia. POS: [facility]
--- NOTE | 2017-05-10 10:44 | PDOC.PN ---
- Subjective Encounter Start Date: 05/10/17 Encounter Start Time: 10:42 Subjective: Seen and examined on ventimask-earlier hypoxic episodes noted -: will address code status today - Objective Resuscitation Status: Resuscitation Status FULL:Full Resuscitation Vital Signs & Weight: Vital Signs (12 hours) Temp Pulse Pulse Pulse Resp Resp Resp 05/10/17 08:10 98.6 F 100 36 H 05/10/17 07:51 05/10/17 07:24 100 100 36 H 32 H 05/10/17 07:20 100 36 H 05/10/17 07:10 98.6 F 100 20 05/10/17 03:31 97.8 F 72 22 H 05/09/17 23:17 97.5 F L 75 22 H BP BP BP Pulse Ox Pulse Ox Pulse Ox 05/10/17 08:10 05/10/17 07:51 95 05/10/17 07:24 109/74 127/77 93 L 97 05/10/17 07:20 05/10/17 07:10 125/80 93 L 05/10/17 03:31 111/53 L 98 05/09/17 23:17 119/68 94 L Weight Weight 158 lb 3.2 oz I&O: 05/09/17 05/10/17 05/11/17 06:59 06:59 06:59 Intake Total 1234 750 Output Total 752 400 Balance 482 350 Result Diagrams: 05/10/17 07:48 05/10/17 07:48 Additional Labs: Accuchecks 05/10/17 07:28 POC Glucose 147 H Phys Exam - Physical Examination Constitutional: NAD ventimask HEENT: moist MMs, sclera anicteric Neck: no nodes, no JVD, supple, full ROM Respiratory: no wheezing, no rales, no rhonchi, clear to auscultation bilateral Cardiovascular: RRR, no significant murmur, no rub Gastrointestinal: soft, non-tender, no distention, positive bowel sounds Musculoskeletal: no edema, pulses present Neurological: normal sensation, moves all 4 limbs Dx/Plan (1) Acute on chronic renal failure Code(s): N17.9 - ACUTE KIDNEY FAILURE, UNSPECIFIED; N18.9 - CHRONIC KIDNEY DISEASE, UNSPECIFIED Status: Acute Comment: creatinine starting to bump, consider switch back to oral diuretics (2) Ischemic cardiomyopathy Code(s): I25.5 - ISCHEMIC CARDIOMYOPATHY Status: Acute (3) Pneumonia Code(s): J18.9 - PNEUMONIA, UNSPECIFIED ORGANISM Status: Acute Qualifiers: Laterality: bilateral Lung location: lower lobe of lung Comment: Rocephin and Azithromycin beginning 05/06/17, switch to oral abx 05/08/17 (4) Systolic CHF, acute on chronic Code(s): I50.23 - ACUTE ON CHRONIC SYSTOLIC (CONGESTIVE) HEART FAILURE Status : Acute Comment: IV diuretics, Dr. Clayton following (5) Anticoagulant long-term use Code(s): Z79.01 - RETIREMENT (CURRENT) USE OF ANTICOAGULANTS Status: Chronic Comment: Supratherapeutic, holding Coumadin, trending up inspite of no meds (6) Atrial fibrillation Code(s): I48.91 - UNSPECIFIED ATRIAL FIBRILLATION Status: Chronic Qualifiers: Atrial fibrillation type: chronic Qualified Code(s): I48.2 - Chronic atrial fibrillation (7) CAD (coronary artery disease) Code(s): I25.10 - ATHSCL HEART DISEASE OF [place] CORONARY ARTERY W/O ANG PCTRS Status: Chronic Qualifiers: Coronary Disease-Associated Artery/Lesion type: [place] artery Comment: Completely occluded LAD, inoperable - Plan PT/OT, social welfare research worker, DVT proph w/lovenox Diuresis--CXR -: Address code status-pt wants CPR/Breathing machine for "short term only" -: d/c plan on hold -: will leave him as full code for now * .
[2017-05-10] MEDS ORDERED: Morphine 4 MG/ML VIAL IV SCH (10:45)
[2017-05-10] MEDS: Famotidine 20 MG TAB PO SCH (22:17)
[2017-05-10] MEDS: Atorvastatin Calcium 40 MG TAB PO SCH (22:18)
[2017-05-11 06:27] LABS: INR-International Normal Ratio 3.4; Prothrombin Time 35.6 SEC (12.0-14.7)
--- NOTE | 2017-05-11 07:22 | PDOC.PN ---
- Subjective Encounter Start Date: 05/11/17 Encounter Start Time: 07:21 Subjective: seen and examined feeling a little bit better - Objective Resuscitation Status: Resuscitation Status FULL:Full Resuscitation Vital Signs & Weight: Vital Signs (12 hours) Temp Pulse Resp BP Pulse Ox 05/11/17 04:05 96.8 F L 66 20 119/73 98 05/10/17 23:43 98.5 F 72 18 113/71 92 L 05/10/17 19:53 97.1 F L 75 20 120/73 98 Weight Weight 153 lb 11.2 oz I&O: 05/10/17 05/11/17 05/12/17 06:59 06:59 06:59 Intake Total 750 820 Output Total 400 1 Balance 350 819 Result Diagrams: 05/10/17 07:48 05/10/17 07:48 Additional Labs: Accuchecks 05/10/17 07:28 POC Glucose 147 H Phys Exam - Physical Examination Constitutional: NAD HEENT: PERRLA, moist MMs, sclera anicteric, TM's clear Neck: no nodes, no JVD, supple, full ROM Respiratory: no wheezing, no rales, no rhonchi, clear to auscultation bilateral Cardiovascular: RRR, no significant murmur, no rub Gastrointestinal: soft, non-tender, no distention, positive bowel sounds Musculoskeletal: no edema, pulses present Dx/Plan (1) Acute on chronic renal failure Code(s): N17.9 - ACUTE KIDNEY FAILURE, UNSPECIFIED; N18.9 - CHRONIC KIDNEY DISEASE, UNSPECIFIED Status: Acute Comment: creatinine starting to bump, consider switch back to oral diuretics (2) Ischemic cardiomyopathy Code(s): I25.5 - ISCHEMIC CARDIOMYOPATHY Status: Acute (3) Pneumonia Code(s): J18.9 - PNEUMONIA, UNSPECIFIED ORGANISM Status: Acute Qualifiers: Laterality: bilateral Lung location: lower lobe of lung Comment: Rocephin and Azithromycin beginning 05/06/17, switch to oral abx 05/08/17 (4) Systolic CHF, acute on chronic Code(s): I50.23 - ACUTE ON CHRONIC SYSTOLIC (CONGESTIVE) HEART FAILURE Status : Acute Comment: IV diuretics, Dr. 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 (CURRENT) USE OF ANTICOAGULANTS Status: Chronic Comment: Supratherapeutic, holding Coumadin, trending up inspite of no meds (6) Atrial fibrillation Code(s): I48.91 - UNSPECIFIED ATRIAL FIBRILLATION Status: Chronic Qualifiers: Atrial fibrillation type: chronic Qualified Code(s): I48.2 - Chronic atrial fibrillation (7) CAD (coronary artery disease) Code(s): I25.10 - ATHSCL HEART DISEASE OF [place] CORONARY ARTERY W/O ANG PCTRS Status: Chronic Qualifiers: Coronary Disease-Associated Artery/Lesion type: [place] artery Comment: Completely occluded LAD, inoperable (8) CKD (chronic kidney disease) stage 4, GFR 15-29 ml/min Code(s): N18.4 - CHRONIC KIDNEY DISEASE, STAGE 4 (SEVERE) Status: Acute - Plan plan discussed w/ family, continue antibiotics, PT/OT, web content & social media manager, respiratory therapy Diuresis -: Repeat CXR tommorrow to re-evaluate new RT infiltrate vs fluid -: Dispo planning delayed due to Code green/resp distress yesterday * .
[2017-05-11] MEDS ORDERED: Furosemide 20 MG/2 ML VIAL SLOW IVP SCH ×2 (08:00→09:00)
[2017-05-11] MEDS: Docusate 100 MG CAP PO SCH ×2 (08:16→21:07)
[2017-05-11] MEDS: guaiFENesin ER 600 MG TAB PO SCH ×2 (08:16→21:12)
[2017-05-11] MEDS: Cefdinir 300 MG CAP PO SCH ×2 (08:16→21:12)
[2017-05-11] MEDS: Carvedilol 3.125 MG TAB PO SCH ×2 (08:16→17:53)
[2017-05-11] MEDS: Tamsulosin HCl 0.4 MG CAP PO SCH (08:16)
[2017-05-11] MEDS: Spironolactone 25 MG TAB PO SCH (08:17)
[2017-05-11] MEDS: Furosemide 20 MG/2 ML VIAL SLOW IVP SCH (13:53)
[2017-05-11] MEDS: Atorvastatin Calcium 40 MG TAB PO SCH (21:12)
[2017-05-11] MEDS: Famotidine 20 MG TAB PO SCH (21:12)
[2017-05-12 05:47] LABS: INR-International Normal Ratio 2.6; Prothrombin Time 28.6 SEC (12.0-14.7)
[2017-05-12 06:07] LABS: Anion Gap 15 mmol/L (10-20); BUN (Urea Nitrogen) 42 mg/dL (8.4-25.7); Calc. Creatinine Clearance 29 mL/min (70-130); Calcium 8.5 mg/dL (7.8-10.44); Carbon Dioxide 22 mmol/L (23-31); Chloride 101 mmol/L (98-107); Estimated GFR-MDRD 38; Glucose 104 mg/dL (83-110); Potassium 3.8 mmol/L (3.5-5.1); Sodium 134 mmol/L (136-145)
[2017-05-12] MEDS: Furosemide 20 MG/2 ML VIAL SLOW IVP SCH (06:44)
[2017-05-12] MEDS: Docusate 100 MG CAP PO SCH ×2 (08:49→21:50)
[2017-05-12] MEDS: Tamsulosin HCl 0.4 MG CAP PO SCH (08:49)
[2017-05-12] MEDS: Cefdinir 300 MG CAP PO SCH ×2 (08:49→21:50)
[2017-05-12] MEDS: guaiFENesin ER 600 MG TAB PO SCH ×2 (08:49→21:50)
--- NOTE | 2017-05-12 08:49 | RAD ---
TWO VIEWS OF THE CHEST: DATE: 05/12/17. COMPARISON: 05/29/14 and 05/10/17. HISTORY: Short of breath. FINDINGS: The interstitial and alveolar opacity in the perihilar regions noted on the 05/10/17 examination have i mproved markedly. There is no pneumothorax. There are small bilateral pleural effusions noted, righ t larger than left. There is no lobar consolidation or alveolar edema. There is prominence of the c ardiac silhouette, a stable finding. IMPRESSION: Small bilateral pleural effusions, right greater than left. Interstitial and alveolar opacities note d on the 05/10/17 examination have improved markedly suggesting interval improvement of pulmonary edema . POS: [facility]
[2017-05-12] MEDS: Carvedilol 3.125 MG TAB PO SCH ×2 (08:50→16:56)
[2017-05-12] MEDS: Spironolactone 25 MG TAB PO SCH (08:50)
[2017-05-12] MEDS ORDERED: Valsartan 80 MG TAB PO SCH ×2 (10:00→10:30)
--- NOTE | 2017-05-12 11:30 | PDOC.PN ---
- Subjective Encounter Start Date: 05/12/17 Encounter Start Time: 11:28 Subjective: Seen and examined feeling better - Objective Resuscitation Status: Resuscitation Status FULL:Full Resuscitation Vital Signs & Weight: Vital Signs (12 hours) Temp Pulse Resp BP Pulse Ox 05/12/17 08:50 98.2 F 71 18 95 05/12/17 07:33 98.2 F 71 18 110/63 95 05/12/17 04:39 98.2 F 69 18 116/62 98 05/12/17 00:19 95 05/11/17 23:41 97.8 F 69 18 111/69 95 Weight Weight 157 lb 6.4 oz I&O: 05/11/17 05/12/17 05/13/17 06:59 06:59 06:59 Intake Total 820 1200 200 Output Total 1 Balance 819 1200 200 Result Diagrams: 05/10/17 07:48 05/12/17 04:57 Phys Exam - Physical Examination Constitutional: NAD HEENT: PERRLA, moist MMs, sclera anicteric, TM's clear, oral pharynx no lesions Neck: no nodes, no JVD, supple, full ROM Respiratory: no wheezing, no rales, no rhonchi, clear to auscultation bilateral Cardiovascular: RRR, no significant murmur, no rub Gastrointestinal: soft, non-tender, no distention, positive bowel sounds Musculoskeletal: no edema, pulses present Dx/Plan (1) Acute on chronic renal failure Code(s): N17.9 - ACUTE KIDNEY FAILURE, UNSPECIFIED; N18.9 - CHRONIC KIDNEY DISEASE, UNSPECIFIED Status: Acute Comment: creatinine starting to bump, consider switch back to oral diuretics (2) Ischemic cardiomyopathy Code(s): I25.5 - ISCHEMIC CARDIOMYOPATHY Status: Acute (3) Pneumonia Code(s): J18.9 - PNEUMONIA, UNSPECIFIED ORGANISM Status: Acute Qualifiers: Laterality: bilateral Lung location: lower lobe of lung Comment: Rocephin and Azithromycin beginning 05/06/17, switch to oral abx 05/08/17 (4) Systolic CHF, acute on chronic Code(s): I50.23 - ACUTE ON CHRONIC SYSTOLIC (CONGESTIVE) HEART FAILURE Status : Acute Comment: IV diuretics, Dr. Clayton following (5) Anticoagulant long-term use Code(s): Z79.01 - [place] (CURRENT) USE OF ANTICOAGULANTS Status: Chronic Comment: Supratherapeutic, holding Coumadin, trending up inspite of no meds (6) Atrial fibrillation Code(s): I48.91 - UNSPECIFIED ATRIAL FIBRILLATION Status: Chronic Qualifiers: Atrial fibrillation type: chronic Qualified Code(s): I48.2 - Chronic atrial fibrillation (7) CAD (coronary artery disease) Code(s): I25.10 - ATHSCL HEART DISEASE OF [place] CORONARY ARTERY W/O ANG PCTRS Status: Chronic Qualifiers: Coronary Disease-Associated Artery/Lesion type: [place] artery Comment: Completely occluded LAD, inoperable (8) CKD (chronic kidney disease) stage 4, GFR 15-29 ml/min Code(s): N18.4 - CHRONIC KIDNEY DISEASE, STAGE 4 (SEVERE) Status: Acute (9) Pleural effusion Code(s): J90 - PLEURAL EFFUSION, NOT ELSEWHERE CLASSIFIED Status: Acute - Plan plan discussed w/ family, PT/OT, social research assistant, respiratory therapy May d/c to Rehab today -: Continue diuresis -: D/c to Rehab if ok with hospital clerk * .
[2017-05-12] MEDS: Benzonatate 100 MG CAP PO PRN (16:56)
[2017-05-12] MEDS: Warfarin Sodium 3 MG TAB PO SCH (16:56)
[2017-05-12] MEDS: Famotidine 20 MG TAB PO SCH (21:50)
[2017-05-12] MEDS: Atorvastatin Calcium 40 MG TAB PO SCH (21:50)
[2017-05-12] MEDS: Furosemide 20 MG TAB PO SCH (21:51)
[2017-05-13 05:43] LABS: Prothrombin Time 23.4 SEC (12.0-14.7)
[2017-05-13] MEDS: Spironolactone 25 MG TAB PO SCH (08:23)
[2017-05-13] MEDS: Tamsulosin HCl 0.4 MG CAP PO SCH (08:23)
[2017-05-13] MEDS: Docusate 100 MG CAP PO SCH ×2 (08:23→21:16)
[2017-05-13] MEDS: guaiFENesin ER 600 MG TAB PO SCH ×2 (08:23→21:15)
[2017-05-13] MEDS: Valsartan 80 MG TAB PO SCH (08:23)
[2017-05-13] MEDS: Furosemide 20 MG TAB PO SCH ×2 (08:23→21:16)
[2017-05-13] MEDS: Benzonatate 100 MG CAP PO PRN ×2 (08:23→17:09)
[2017-05-13] MEDS: Cefdinir 300 MG CAP PO SCH ×2 (08:23→21:16)
[2017-05-13] MEDS: Carvedilol 3.125 MG TAB PO SCH ×2 (08:23→17:09)
[2017-05-13] MEDS ORDERED: Furosemide 20 MG TAB PO SCH (09:00)
[2017-05-13] MEDS: Warfarin Sodium 3 MG TAB PO SCH (17:09)
--- NOTE | 2017-05-13 19:33 | PDOC.PN ---
- Subjective Encounter Start Date: 05/13/17 Encounter Start Time: 19:31 Subjective: Seen and examined no new complaint - Objective Resuscitation Status: Resuscitation Status FULL:Full Resuscitation Vital Signs & Weight: Vital Signs (12 hours) Temp Pulse Resp BP Pulse Ox 05/13/17 15:20 97.7 F 72 20 112/62 98 05/13/17 12:00 98 05/13/17 11:40 97.4 F L 76 18 116/71 98 05/13/17 08:28 97.6 F 76 18 97 Weight Weight 157 lb 6.4 oz I&O: 05/12/17 05/13/17 05/14/17 06:59 06:59 06:59 Intake Total 1200 1220 370 Balance 1200 1220 370 Result Diagrams: 05/10/17 07:48 05/12/17 04:57 Phys Exam - Physical Examination Constitutional: NAD HEENT: PERRLA, moist MMs, sclera anicteric, TM's clear, oral pharynx no lesions Neck: no nodes, no JVD, supple, full ROM Respiratory: no wheezing, no rales, no rhonchi, wheezing present Cardiovascular: RRR, no significant murmur, no rub Gastrointestinal: soft, no distention, positive bowel sounds Musculoskeletal: no edema, pulses present Dx/Plan (1) Acute on chronic renal failure Code(s): N17.9 - ACUTE KIDNEY FAILURE, UNSPECIFIED; N18.9 - CHRONIC KIDNEY DISEASE, UNSPECIFIED Status: Acute Comment: creatinine starting to bump, consider switch back to oral diuretics (2) Ischemic cardiomyopathy Code(s): I25.5 - ISCHEMIC CARDIOMYOPATHY Status: Acute (3) Pneumonia Code(s): J18.9 - PNEUMONIA, UNSPECIFIED ORGANISM Status: Acute Qualifiers: Laterality: bilateral Lung location: lower lobe of lung Comment: Rocephin and Azithromycin beginning 05/06/17, switch to oral abx 05/08/17 (4) Systolic CHF, acute on chronic Code(s): I50.23 - ACUTE ON CHRONIC SYSTOLIC (CONGESTIVE) HEART FAILURE Status : Acute Comment: IV diuretics, Dr. Clayton following (5) Anticoagulant long-term use Code(s): Z79.01 - INTERMEDIATE (CURRENT) USE OF ANTICOAGULANTS Status: Chronic Comment: Supratherapeutic, holding Coumadin, trending up inspite of no meds (6) Atrial fibrillation Code(s): I48.91 - UNSPECIFIED ATRIAL FIBRILLATION Status: Chronic Qualifiers: Atrial fibrillation type: chronic Qualified Code(s): I48.2 - Chronic atrial fibrillation (7) CAD (coronary artery disease) Code(s): I25.10 - ATHSCL HEART DISEASE OF [place] CORONARY ARTERY W/O ANG PCTRS Status: Chronic Qualifiers: Coronary Disease-Associated Artery/Lesion type: [place] artery Comment: Completely occluded LAD, inoperable (8) CKD (chronic kidney disease) stage 4, GFR 15-29 ml/min Code(s): N18.4 - CHRONIC KIDNEY DISEASE, STAGE 4 (SEVERE) Status: Acute (9) Pleural effusion Code(s): J90 - PLEURAL EFFUSION, NOT ELSEWHERE CLASSIFIED Status: Acute - Plan plan discussed w/ family, continue antibiotics, PT/OT, outreach and education social worker, respiratory therapy Accepted at Rehab-awaiting Bed availability * .
[2017-05-13] MEDS: Atorvastatin Calcium 40 MG TAB PO SCH (21:16)
[2017-05-13] MEDS: Famotidine 20 MG TAB PO SCH (21:16)
[2017-05-14 06:34] LABS: Prothrombin Time 23.4 SEC (12.0-14.7)
--- NOTE | 2017-05-14 08:47 | PDOC.PN ---
- Subjective Encounter Start Date: 05/14/17 Encounter Start Time: 08:46 Subjective: Seen and examined feeling ok - Objective Resuscitation Status: Resuscitation Status FULL:Full Resuscitation Vital Signs & Weight: Vital Signs (12 hours) Temp Pulse Resp BP Pulse Ox 05/14/17 07:35 97.5 F L 87 20 122/71 99 05/14/17 06:18 97 05/14/17 03:45 98.3 F 70 18 119/68 96 05/14/17 00:13 97.5 F L 70 16 111/63 98 05/13/17 20:58 98.2 F 72 16 98 05/13/17 20:56 98.2 F 72 16 118/66 98 Weight Weight 157 lb 6.4 oz I&O: 05/13/17 05/14/17 05/15/17 06:59 06:59 06:59 Intake Total 1220 370 Balance 1220 370 Result Diagrams: 05/10/17 07:48 05/12/17 04:57 Phys Exam - Physical Examination Constitutional: NAD HEENT: PERRLA, moist MMs, sclera anicteric, TM's clear Neck: no nodes, no JVD, supple, full ROM Respiratory: no wheezing, no rales, no rhonchi, clear to auscultation bilateral Cardiovascular: RRR, no significant murmur, no rub Gastrointestinal: soft, non-tender, no distention, positive bowel sounds Dx/Plan (1) Acute on chronic renal failure Code(s): N17.9 - ACUTE KIDNEY FAILURE, UNSPECIFIED; N18.9 - CHRONIC KIDNEY DISEASE, UNSPECIFIED Status: Acute Comment: creatinine starting to bump, consider switch back to oral diuretics (2) Ischemic cardiomyopathy Code(s): I25.5 - ISCHEMIC CARDIOMYOPATHY Status: Acute (3) Pneumonia Code(s): J18.9 - PNEUMONIA, UNSPECIFIED ORGANISM Status: Acute Qualifiers: Laterality: bilateral Lung location: lower lobe of lung Comment: Rocephin and Azithromycin beginning 05/06/17, switch to oral abx 05/08/17 (4) Systolic CHF, acute on chronic Code(s): I50.23 - ACUTE ON CHRONIC SYSTOLIC (CONGESTIVE) HEART FAILURE Status : Acute Comment: IV diuretics, Dr. 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 OF ANTICOAGULANTS Status: Chronic Comment: Supratherapeutic, holding Coumadin, trending up inspite of no meds (6) Atrial fibrillation Code(s): I48.91 - UNSPECIFIED ATRIAL FIBRILLATION Status: Chronic Qualifiers: Atrial fibrillation type: chronic Qualified Code(s): I48.2 - Chronic atrial fibrillation (7) CAD (coronary artery disease) Code(s): I25.10 - ATHSCL HEART DISEASE OF [place] CORONARY ARTERY W/O ANG PCTRS Status: Chronic Qualifiers: Coronary Disease-Associated Artery/Lesion type: [place] artery Comment: Completely occluded LAD, inoperable (8) CKD (chronic kidney disease) stage 4, GFR 15-29 ml/min Code(s): N18.4 - CHRONIC KIDNEY DISEASE, STAGE 4 (SEVERE) Status: Acute (9) Pleural effusion Code(s): J90 - PLEURAL EFFUSION, NOT ELSEWHERE CLASSIFIED Status: Acute - Plan plan discussed w/ family, continue antibiotics, PT/OT, social insurance adviser, respiratory therapy Awaiting Rehab bed * .
[2017-05-14] MEDS: Tamsulosin HCl 0.4 MG CAP PO SCH (08:54)
[2017-05-14] MEDS: Valsartan 80 MG TAB PO SCH (08:54)
[2017-05-14] MEDS: Furosemide 20 MG TAB PO SCH (08:54)
[2017-05-14] MEDS: Cefdinir 300 MG CAP PO SCH (08:55)
[2017-05-14] MEDS: Benzonatate 100 MG CAP PO PRN (08:55)
[2017-05-14] MEDS: guaiFENesin ER 600 MG TAB PO SCH (08:55)
[2017-05-14] MEDS: Docusate 100 MG CAP PO SCH (08:55)
[2017-05-14] MEDS: Carvedilol 3.125 MG TAB PO SCH ×2 (08:55→18:01)
[2017-05-14] MEDS: Spironolactone 25 MG TAB PO SCH (08:55)
[2017-05-14 16:07] VITALS: BP 120/74; TEMP 97.8
[2017-05-14] MEDS: Warfarin Sodium 3 MG TAB PO SCH (18:01)
--- NOTE | 2017-05-15 13:42 | DIS ---
SUMMARY: This is an 89-year-old gentleman who presented here with cough and shortness of breath, got diagnosed with pneumonia as well as systolic congestive heart failure exacerbation and non-ST elevat ion NM. Patient was seen in consultation by Cardiology and Lasix was recommended. Patient also star barrett on antibiotics and continued to maintain sustained improvements. Clinical conditions treated during this hospitalization include: 1. Systolic congestive heart failure exacerbation. 2. Pneumonia in the context of community-acquired pneumonia. 3. Non-ST elevation myocardial infarction. 4. Atrial fibrillation with rapid ventricular response. DISCHARGE MEDICATIONS: Patient has maintained sustained clinical improvement got discharged on the f [facility] medications: Amiodarone 200 mg p.o. b.i.d., aspirin 81 mg p.o. daily, Lipitor 40 mg p.o. at bedtime, Coreg 3.125 mg p.o. b.i.d., furosemide 40 mg p.o. b.i.d., guaifenesin 600 mg p.o. q.12, Syn throid 25 mcg p.o. daily, Imodium 2 mg q.4 p.r.n., nitroglycerin p.r.n., Ranexa 1000 mg p.o. b.i.d., Florastor 250 mg p.o. b.i.d., spironolactone 25 mg p.o. daily, Flomax 0.4 mg p.o. daily, Diovan 40 mg p.o. q.p.m., Coumadin 20 mg p.o. daily. DISCHARGE INSTRUCTIONS: 1. Follow up with the primary care physician. 2. Stay compliant with medication. 3. Represent here in case of any relapse or deterioration in clinical condition. Total time spent including [id number] encounter 31 minutes.
--- NOTE | 2017-05-15 19:41 | EKG ---
Test Reason : CODE GREEN Blood Pressure : / mmHG Vent. Rate : 100 BPM Atrial Rate : 093 BPM P-R Int : 000 ms QRS Dur : 148 ms QT Int : 418 ms P-R-T Axes : 107 014 176 degrees QTc Int : 539 ms Undetermined rhythm Left bundle branch block Abnormal ECG Confirmed by KHUSHBOO BONILLA (2) on 05/15/2017 7:41:26 PM Referred By: CHARLIE Confirmed By:KHUSHBOO BONILLA
--- NOTE | 2017-06-14 18:58 | EKG ---
Test Reason : COUGH Blood Pressure : / mmHG Vent. Rate : 097 BPM Atrial Rate : 107 BPM P-R Int : 000 ms QRS Dur : 178 ms QT Int : 414 ms P-R-T Axes : 000 002 164 degrees QTc Int : 525 ms Atrial fibrillation Left bundle branch block Abnormal ECG Confirmed by MARV BORGES, CHRISTY Parker ([id number]), copy editor BERTO DUNCAN ([id number]) on 06/14/2017 6:58:08 PM Referred By: Confirmed By:CHRISTY FAIR MD
== END 2017-05-14 17:35 | DRG 193 ==
LOC: ERS 08:15 → 2SE 11:03
PROVIDERS: ADMIT Emergency Medicine; ATTEND Emergency Medicine
DX: J18.9 Pneumonia, unspecified organism (principal); I21.4 Non-ST elevation (NSTEMI) myocardial infarction; I50.23 Acute on chronic systolic (congestive) heart failure; N18.4 Chronic kidney disease, stage 4 (severe); J91.8 Pleural effusion in other conditions classified elsewhere; N17.9 Acute kidney failure, unspecified; I42.0 Dilated cardiomyopathy; I48.2 Chronic atrial fibrillation; I13.0 Hypertensive heart and chronic kidney disease with heart failure and stage 1 through stage 4 chronic kidney disease, or unspecified chronic kidney disease; I25.10 Atherosclerotic heart disease of native coronary artery without angina pectoris; R09.02 Hypoxemia; Z79.01 Long term (current) use of anticoagulants; Z85.828 Personal history of other malignant neoplasm of skin; I25.5 Ischemic cardiomyopathy; I34.0 Nonrheumatic mitral (valve) insufficiency
CPT/HCPCS: 36415; 36416; 71045; 71046; 80048; 80053; 81003; 82553; 82805; 83605; 83880; 84484; 85025; 85610; 85730; 87040; 87086; 93005; 93010; 94640; 94760; 96365; 96375; A4216; G8978-GP-CK; G8979-GP-CI; G8987-GO-CK; G8988-GO-CI; J0456; J0696; J1940; J2270; J2405; J7050; J7620; Q0162

== ENCOUNTER 2017-05-15 00:41 | Inpatient (IN) | payer MEDICARE ==
[2017-05-15 01:04] LABS: Base Excess-Venous -1.9 mmol/L (-30.0-30.0); Bicarbonate (HCO3v) 21.7 mmol/L (1.0-85.0); CO2 Tension (PvCO2) 31.7 mmHg (41.0-51.0); Calcium, Ionized 1.09 mmol/L (1.12-1.32); Hemoglobin - Calc 10.1 g/dL (12.0-18.0); Lactate 1.35 mmol/L (0.50-2.20); O2 Tension (PvO2) 38.1 mmHg (35.0-45.0); Potassium 3.5 mmol/L (3.4-4.7); T. Carbon Dioxide 22.6 mmol/L (1.0-85.0); pH (Venous) 7.443 (7.35-7.45); vO2 Saturation-calc 75.4 % (0.0-100.0)
[2017-05-15] MEDS ORDERED: Calcium Chloride 1 GM/10 ML Abboject SYRINGE ONE (01:08)
[2017-05-15] MEDS ORDERED: Albuterol Sulfate 2.5 mg/3 ml Neb ONE (01:13)
[2017-05-15] MEDS ORDERED: Magnesium 2 GM/NS 0.9% 100 ML 2 GM in Premix Bag 1 BAG IVPB SCH (01:15)
[2017-05-15] MEDS ORDERED: Amiodarone HCl 450 MG, Admixture Fee 1 EACH in Dextrose 5% in Water 250 ML IVPB SCH ×6 (01:15→05:00)
[2017-05-15 01:18] LABS: #Monocytes 0.6 thou/uL (0.11-0.59); #Neutrophils 6.2 thou/uL (1.40-6.50); %Basophils 0.5 % (0.0-1.0); %Eosinophils 0.5 % (0.0-10.0); %Monocytes 7.9 % (0.0-10.0); %Neutrophils 78.1 % (42.0-75.0); Mean Corpuscular Hemoglobin 31.9 pg (27.0-31.0); Mean Corpuscular Volume 96.5 fl (80.0-94.0); Mean Platelet Volume 10.5 fL (7.4-10.4); Platelet Count 184 thou/uL (130-400); RBC Distribution Width 12.8 % (11.5-14.5); Red Blood Cell (RBC) Count 3.14 mill/uL (4.70-6.10)
[2017-05-15 01:29] LABS: PTT 52.5 SEC (22.9-36.1)
[2017-05-15 01:43] LABS: INR-International Normal Ratio 2.1; Prothrombin Time 24.3 SEC (12.0-14.7)
[2017-05-15 01:51] LABS: CKMB 5.9 ng/mL (0-6.6)
[2017-05-15 01:54] LABS: Critical Call Chem Troponin I RESULT DECREASING; Troponin I 0.495 ng/mL (< 0.028)
[2017-05-15 01:55] LABS: ALT (SGPT) 27 U/L (8-55); AST (SGOT) 39 U/L (5-34); Albumin 3.2 g/dL (3.4-4.8); Alkaline Phosphatase 61 U/L (40-150); Anion Gap 16 mmol/L (10-20); BUN (Urea Nitrogen) 28 mg/dL (8.4-25.7); Bilirubin, Total 0.7 mg/dL (0.2-1.2); CK (CPK) 130 U/L (30-200); Calc. Creatinine Clearance 0 mL/min (70-130); Calcium 8.5 mg/dL (7.8-10.44); Carbon Dioxide 20 mmol/L (23-31); Chloride 105 mmol/L (98-107); Estimated GFR-MDRD 44; Globulin 3.5 g/dL (2.4-3.5); Glucose 108 mg/dL (83-110); Potassium 4.4 mmol/L (3.5-5.1); Protein, Total 6.7 g/dL (5.8-8.1); Sodium 137 mmol/L (136-145)
[2017-05-15] MEDS ORDERED: Piperacillin/Tazobactam 4.5 GM in Sodium Chloride 0.9% 100 ML IVPB SCH (02:15)
[2017-05-15] MEDS ORDERED: Digoxin 0.5 MG/2 ML AMP ONE (03:07)
[2017-05-15] MEDS ORDERED: Milk Of Magnesia 30 ML UDCUP PO PRN (04:49)
[2017-05-15] MEDS ORDERED: Diabetic Tussin 200 MG/10 ML UDCUP PO PRN (04:49)
[2017-05-15] MEDS ORDERED: hydrALAZINE 20 MG/ML VIAL SLOW IVP PRN (04:49)
[2017-05-15] MEDS ORDERED: Nitroglycerin 0.4 MG TAB (25 Tab Bottle) SL PRN (04:49)
[2017-05-15] MEDS ORDERED: Mag-Al 1200 mg/1200 mg/30 ML UDCUP PO PRN (04:49)
[2017-05-15] MEDS ORDERED: Eucerin (Mineral Oil/Petrolatum,White) 30 gm Jar TOP PRN (04:49)
[2017-05-15] MEDS ORDERED: Sodium Chloride 0.65% Nasal 44 ML BOT EA NARE PRN (04:49)
[2017-05-15] MEDS ORDERED: Chloraseptic Spray 180 ml Bottle PO PRN (04:49)
[2017-05-15] MEDS ORDERED: Artificial Tears 18 DROP/0.9 ML EA EYE PRN (04:49)
[2017-05-15] MEDS ORDERED: HYDROcodone/Acetaminophen 5/325 mg Tablet PO PRN (04:49)
[2017-05-15] MEDS ORDERED: Loperamide HCl 2 MG CAP PO PRN (04:49)
[2017-05-15] MEDS ORDERED: Senokot 8.6 MG TAB PO PRN (04:49)
[2017-05-15] MEDS ORDERED: Acetaminophen 325 MG TAB PO PRN (04:49)
[2017-05-15] MEDS ORDERED: Loratadine 10 MG TAB PO PRN (04:49)
[2017-05-15] MEDS ORDERED: Amiodarone In Dextrose 200 ML IVPB SCH (05:00)
--- NOTE | 2017-05-15 05:31 | HP ---
PRIMARY CARE PHYSICIAN: Kade Magaña M.D. REASON FOR ADMISSION: Atrial fibrillation with rapid ventricular response. HISTORY OF PRESENT ILLNESS: An 89-year-old male, who was most recently admitted in our hospital on 0 05/06/2017. During that admission, the patient was treated for community-acquired pneumonia. He also had hypoxic respiratory failure and he was also treated for CHF exacerbation. The patient was disch arged just yesterday. During that admission on 05/10/2017, he had Code Green because of respiratory distress and that was improved after Lasix therapy. Cardiology was also following during that admiss ion. After discharge, the patient was not doing well there at the shelter, and over there, he was fou nd with atrial fibrillation with RVR and that is why he was sent back to the ER again. In emergency room, the patient was found with atrial fibrillation with RVR. He had wide QRS complex and prolonged QTC interval. His EKG was showing left bundle branch block pattern. He was given amiodarone drip. He was also given digoxin, magnesium sulfate, calcium chloride, albuterol nebulization, IV fluids, v ancomycin and Zosyn. The patient is very hard of hearing. He is not providing any that good history , but he reported that where all this going on at shelter, he was having chest discomfort and pa lpitation. ALLERGIES: No known drug allergies. CURRENT HOME MEDICATIONS: The patient was discharged to shelter on following medications: Aspi rin 81 mg p.o. daily, Coreg 3.125 mg p.o. b.i.d., Lipitor 40 mg p.o. at bedtime, Omnicef 300 mg p.o. b.i.d., Colace 100 mg p.o. daily, Pepcid 20 mg p.o. b.i.d., Lasix 20 mg p.o. b.i.d., Synthroid 25 mcg p.o. daily, nitroglycerin as directed, omeprazole 20 mg p.o. daily, Ranexa 1000 mg p.o. b.i.d., [place] ctone 25 mg p.o. daily, Flomax 0.4 mg p.o. daily, valsartan 80 mg p.o. daily, and warfarin 3 mg p.o. daily. REVIEW OF SYSTEMS: REVIEW OF SYSTEMS: The following complete review of systems was negative, unless otherwise mentioned in the HPI or below: Constitutional: Weight loss or gain, ability to conduct usual activities. Skin: Rash, itching. Eyes: Double vision, pain. ENT/Mouth: Nose bleeding, neck stiffness, pain, tenderness. Cardiovascular: Palpitations, dyspnea on exertion, orthopnea. Respiratory: Shortness of breath, wheezing, cough, hemoptysis, fever or night sweats. Gastrointestinal: Poor appetite, abdominal pain, heartburn, nausea, vomiting, constipation, or diarr hea. Genitourinary: Urgency, frequency, dysuria, nocturia. Musculoskeletal: Pain, swelling. Neurologic/Psychiatric: Anxiety, depression. Allergy/Immunologic: Skin rash, bleeding tendency. Otherwise negative except as stated per HPI. Please see my HPI for pertinent positive and negative. All other review of system reviewed and negat [place] except as mentioned in the HPI. Review of systems is very limited as well and not significantly reliable. PAST MEDICAL HISTORY: Chronic systolic congestive heart failure with EF 15% to 20%, based on echocar diography on 01/2016; coronary artery disease with 100% occlusion of LAD, medically managed; chronic atrial fibrillation, on warfarin therapy; hypertension; dyslipidemia; hypothyroidism and physical dec onditioning. PAST SURGICAL HISTORY: Skin cancer excision, bilateral inguinal hernia repair. PAST PSYCHIATRIC HISTORY: Reviewed and negative. SOCIAL HISTORY: Currently, the patient is living at shelter. No history of tobacco, alcohol or illicit drug abuse. FAMILY HISTORY: Positive for coronary artery disease among several family members in old age. EMERGENCY ROOM COURSE: The patient has received vancomycin, Zosyn, amiodarone drip, magnesium sulfat e 2 grams, digoxin 0.25 mg, little IV fluid, calcium chloride, and albuterol nebulization. PHYSICAL EXAMINATION: VITAL SIGNS: On arrival, blood pressure 101/71, pulse 121 and irregular, respiratory rate 20, temper ature 97.7, saturation 98% on 2 liters oxygen, and weight 64 kilograms. GENERAL: The patient is currently alert, awake, hard of hearing, and poor hygiene. HEENT: Head: Normocephalic, atraumatic. Eyes: Lower eyelid erythema noted with some drainage in t he corner. ENT: Poor oral hygiene. Right ear covered with a bandage. NECK: Supple, no JVD, no thyromegaly, no meningeal signs of irritation. LUNGS: Scattered wheezing heard. Air entry reduced on both sides. CARDIAC: S1 and S2 irregularly irregular. Systolic murmur noted at parasternal, no gallop, no rub. ABDOMEN: Soft, bowel sounds present, nontender, nondistended. No organomegaly, no mass, no suprapub ic tenderness. BACK: Unremarkable, no CVA tenderness. EXTREMITIES: Upper extremity, passive movement of all joints is normal. Lower extremity, trace saulo a noted. Good distal pulsation. SKIN: No skin rash other than spider nevi on chest. PSYCHIATRIC: Flat affect. NEUROLOGIC: Nonfocal examination. He is moving all 4 limbs. No focal neurological deficits noted. SIGNIFICANT LABS: 1. CBC: WBC 8.0, hemoglobin 10.0, platelet 184. INR is 2.1. VBG: pH of 7.44, CO2 of 31.7, O2 of 38.1, bicarbonate 21.7. BMP: Sodium 137, potassium 4.4, chloride 105, carbon dioxide 20, BUN 48, cr eatinine 1.49, glucose 108, calcium 8.5. 2. LFT: AST 39, ALT 27, alkaline phosphatase 61, albumin 3.2. BNP is 3586, which is slightly highe r than previous admission. Troponin is 0.495, which is less than prior admission. ASSESSMENT AND PLAN: 1. Atrial fibrillation with rapid ventricular response. 2. Wide QRS complex secondary to left bundle branch block pattern. 3. Prolonged QTC interval. 4. Elevated troponin, likely due to demand ischemia. 5. Chronic systolic and diastolic congestive heart failure. 6. Chronic anticoagulation therapy with warfarin. 7. Chronic atrial fibrillation. 8. Anemia, normocytic and normochromic. 9. Chronic kidney disease, stage 3. 10. Recent diagnosis of pneumonia, on Omnicef. 11. Dyslipidemia. 12. History of hypertension, but currently low blood pressure. 13. Coronary artery disease with 100% left anterior descending occlusion, on medical therapy. 14. Benign enlargement of prostate. 15. Hypothyroidism. DISCUSSION: This patient is mainly admitted for atrial fibrillation with RVR. He has prolonged QTC interval, which was treated with calcium chloride and magnesium sulfate in the emergency room. We wi ll closely monitor in the IMCU. Cardiology will be consulted. The patient will get selected medicat ion based on tolerance. Currently, the patient is having low blood pressure. His chest x-ray showin g pleural effusion, but his pneumonia is clinically improving. We will only continue oral antibiotic therapy. CODE STATUS: The patient is FULL CODE at this point. The patient does not have any surrogate decision maker. Disposition plan based on clinical course. We are expecting the patient's stay in the hospital more than two midnights. Plan of care discussed with the patient in detail.
--- NOTE | 2017-05-15 08:00 | RAD ---
AP VIEW CHEST: HISTORY: Chest pain. DATE: 05/15/17. COMPARISON: Comparison is made to previous exam from 05/06/17. FINDINGS: AP view chest demonstrates EKG leads seen over the chest. Moderate cardiomegaly is seen. There is interval development of blunting of the right costophrenic angle compatible with a small rig ht-sided pleural effusion. No other acute abnormality is seen. IMPRESSION: 1. Interval development of right-sided pleural effusion. 2. Continued cardiomegaly and pulmonary vascular congestion. POS: [facility]
[2017-05-15] MEDS ORDERED: Furosemide 40 MG TAB ONE (08:54)
[2017-05-15] MEDS ORDERED: Furosemide 20 MG/2 ML VIAL SLOW IVP SCH (09:00)
[2017-05-15] MEDS: Levothyroxine Sodium 25 MCG TAB PO SCH (11:52)
[2017-05-15] MEDS: Spironolactone 25 MG TAB PO SCH (11:52)
[2017-05-15] MEDS: Carvedilol 3.125 MG TAB PO SCH ×2 (11:52→17:57)
[2017-05-15] MEDS: Tamsulosin HCl 0.4 MG CAP PO SCH (11:53)
[2017-05-15] MEDS: Cefdinir 300 MG CAP PO SCH ×2 (11:53→21:48)
[2017-05-15] MEDS ORDERED: Furosemide 40 MG/4 ML VIAL SLOW IVP SCH (12:15)
--- NOTE | 2017-05-15 12:18 | PDOC.EVN ---
Event Note - Event Note Event Note: patient seen and examined. plan expressed to the patient. no acute events
[2017-05-15] MEDS ORDERED: Warfarin Sodium 3 MG TAB PO SCH (17:00)
[2017-05-15] MEDS: Warfarin Sodium 2 MG TAB PO SCH (17:57)
[2017-05-15] MEDS ORDERED: Valsartan 80 MG TAB PO SCH (18:00)
[2017-05-15] MEDS: Amiodarone 200 MG TAB PO SCH (21:47)
[2017-05-15] MEDS: Atorvastatin Calcium 40 MG TAB PO SCH (21:48)
[2017-05-16 06:00] LABS: #Eosinphils 0.1 thou/uL (0.0-0.7); #Lymphocytes 1.3 thou/uL (1.20-3.40); #Monocytes 0.7 thou/uL (0.11-0.59); #Neutrophils 7.5 thou/uL (1.40-6.50); %Basophils 0.1 % (0.0-1.0); %Eosinophils 0.7 % (0.0-10.0); %Lymphocytes 13.9 % (21.0-51.0); %Monocytes 7.6 % (0.0-10.0); %Neutrophils 77.6 % (42.0-75.0); Hemoglobin 10.9 g/dL (14.0-18.0); Mean Corpuscular HGB CONC 32.6 g/dL (32.0-36.0); Mean Corpuscular Hemoglobin 31.9 pg (27.0-31.0); Mean Corpuscular Volume 98.1 fl (80.0-94.0); Mean Platelet Volume 10.4 fL (7.4-10.4); Platelet Count 193 thou/uL (130-400); Red Blood Cell (RBC) Count 3.41 mill/uL (4.70-6.10); White Blood Cell (WBC) Count 9.6 thou/uL (4.8-10.8)
[2017-05-16 06:06] LABS: INR-International Normal Ratio 2.5
[2017-05-16 06:11] LABS: ALT (SGPT) 23 U/L (8-55); AST (SGOT) 27 U/L (5-34); Albumin 3.3 g/dL (3.4-4.8); Alkaline Phosphatase 66 U/L (40-150); Anion Gap 16 mmol/L (10-20); BUN (Urea Nitrogen) 25 mg/dL (8.4-25.7); Bilirubin, Total 0.8 mg/dL (0.2-1.2); Calc. Creatinine Clearance 33 mL/min (70-130); Carbon Dioxide 21 mmol/L (23-31); Chloride 103 mmol/L (98-107); Estimated GFR-MDRD 41; Globulin 3.5 g/dL (2.4-3.5); Glucose 104 mg/dL (83-110); Potassium 4.2 mmol/L (3.5-5.1); Protein, Total 6.8 g/dL (5.8-8.1); Sodium 136 mmol/L (136-145); Uric Acid 11.6 mg/dL (3.5-7.2)
[2017-05-16] MEDS: Levothyroxine Sodium 25 MCG TAB PO SCH (06:12)
[2017-05-16] MEDS: Cefdinir 300 MG CAP PO SCH ×2 (08:29→19:56)
[2017-05-16] MEDS: Spironolactone 25 MG TAB PO SCH (08:29)
[2017-05-16] MEDS: Carvedilol 3.125 MG TAB PO SCH ×2 (08:29→16:59)
[2017-05-16] MEDS: Furosemide 20 MG TAB PO SCH (08:29)
[2017-05-16] MEDS: Amiodarone 200 MG TAB PO SCH ×2 (08:29→19:56)
[2017-05-16] MEDS: Tamsulosin HCl 0.4 MG CAP PO SCH (08:30)
[2017-05-16] MEDS ORDERED: Oseltamivir 75 MG CAP PO SCH (11:30)
--- NOTE | 2017-05-16 12:42 | CON ---
DATE OF CONSULTATION: 05/16/2017 This is an 89-year-old gentleman who was admitted with rapid atrial fibrillation. Cardiology to see him. X-ray shows small pleural effusion. He apparently presented with nausea. He has had a cough. His influenza A was positive. No chest pa in. PAST MEDICAL HISTORY: Hypothyroidism, hypertension, myocardial infarction. PAST SURGICAL HISTORY: Hernia repair. Skin cancer. MEDICATIONS FROM HOME: Lasix 20, Pepcid 20, Omnicef, Coreg, atorvastatin, aspirin, Flomax, spironola ctone, Ranexa 1000, omeprazole 20, nitroglycerin, Synthroid 25, Coumadin 3, Tylenol. The patient was here recently in October. His ejection fraction was about 10-15% at that time. SOCIAL HISTORY: No history of alcohol or tobacco abuse. 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 REVIEW OF SYSTEMS: Ten point negative. PHYSICAL EXAMINATION: GENERAL: An elderly gentleman, cachectic. VITAL SIGNS: Blood pressure 120/84, sats 96%, respirations 28, temperature 97. CHEST: Chest revealed decreased breath sounds, no wheezing. CARDIOVASCULAR: Normal S1, S2. No gallops. ABDOMEN: Soft, no masses. LABORATORY: White count 11,000, H&H 10 and 33, platelet count is 193, creatinine 1.5, BUN is normal. X-ray shows small pleural effusion. His nasal swab shows influenza A. IMPRESSION: 1. Influenza A. 2. Congestive heart failure. 3. Atrial fibrillation. 4. Advanced age. 5. Hypothyroidism. PLAN: Tamiflu was initiated. Continue supportive care. He can probably be transferred out of [facility] once Cardiology sees the patient. I will follow while in the [facility].
--- NOTE | 2017-05-16 14:54 | PDOC.PN ---
- Subjective Encounter Start Date: 05/16/17 Encounter Start Time: 14:40 Subjective: f/u for A-fib RVR now SR on Amiodarone 400mg BID. Also Influenza A -: + on Tamiflu initiated today. - Objective Resuscitation Status: Resuscitation Status FULL:Full Resuscitation MAR Reviewed: Yes Vital Signs & Weight: Vital Signs (12 hours) Temp Pulse Resp BP Pulse Ox 05/16/17 11:31 97.2 F L 67 18 115/59 L 97 05/16/17 07:42 97.7 F 74 20 96 05/16/17 07:27 97.7 F 74 20 128/64 96 05/16/17 04:00 97.7 F 67 20 119/51 L 100 Weight Admit Weight 163 lb Weight 156 lb 3.2 oz I&O: 05/15/17 05/16/17 05/17/17 06:59 06:59 06:59 Intake Total 200 240 Output Total 375 Balance -175 240 Result Diagrams: 05/16/17 05:15 05/16/17 05:15 Additional Labs: Microbiology 05/15/17 11:00 Nasopharyngeal swab Respiratory Virus Panel (PCR) ([facility]) - Final Laboratory Tests 01/31/16 05/06/17 05/15/17 09:55 12:05 01:00 WBC 8.0 Hgb 10.0 L PT INR B-Natriuretic Peptide 1046.3 H 2760.9 H 05/15/17 05/16/17 01:00 05:15 WBC Hgb PT 28.0 H INR 2.5 B-Natriuretic Peptide 3586.2 H Radiology Reviewed by me: Yes (PCXR - R pleural effusion, +pulm edema) EKG Reviewed by me: Yes (Tele - SR in 70's) Phys Exam - Physical Examination ill-appearing HEENT: PERRLA, oral pharynx no lesions Neck: no JVD, supple scattered coarse sounds bilat Cardiovascular: RRR Gastrointestinal: soft, non-tender, no distention, positive bowel sounds Musculoskeletal: no edema, pulses present Neurological: normal sensation, moves all 4 limbs Psychiatric: A&O x 3 Skin: normal turgor, cap refill <2 seconds Dx/Plan (1) Atrial fibrillation Code(s): I48.91 - UNSPECIFIED ATRIAL FIBRILLATION Status: Acute Qualifiers: Atrial fibrillation type: paroxysmal Qualified Code(s): I48.0 - Paroxysmal atrial fibrillation Comment: Continue Amiodarone 400mg BID, Coreg and Coumadin, current SR (2) Influenza A Code(s): J10.1 - FLU DUE TO OTH IDENT INFLUENZA VIRUS W OTH RESP MANIFEST Status: Acute Comment: Tamiflu 75mg BID, respiratory isolation (3) Acute on chronic renal failure Code(s): N17.9 - ACUTE KIDNEY FAILURE, UNSPECIFIED; N18.9 - CHRONIC KIDNEY DISEASE, UNSPECIFIED Status: Acute Comment: Improving, continue to monitor renal function, avoid nephrotoxic meds and contrast media (4) Ischemic cardiomyopathy Code(s): I25.5 - ISCHEMIC CARDIOMYOPATHY Status: Acute Comment: EF 10-15%, continue med mgmt, Lasix 20mg daily (5) Pleural effusion Code(s): J90 - PLEURAL EFFUSION, NOT ELSEWHERE CLASSIFIED Status: Acute Comment: Likely due to Influenza (6) Systolic CHF, acute on chronic Code(s): I50.23 - ACUTE ON CHRONIC SYSTOLIC (CONGESTIVE) HEART FAILURE Status : Acute Comment: See above, compensated currently (7) Anticoagulant long-term use Code(s): 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
[2017-05-16] MEDS ORDERED: guaiFENesin ER 600 MG TAB PO SCH (15:30)
[2017-05-16] MEDS: Warfarin Sodium 2 MG TAB PO SCH (16:59)
[2017-05-16] MEDS: Atorvastatin Calcium 40 MG TAB PO SCH (19:54)
[2017-05-16] MEDS: Oseltamivir 75 MG CAP PO SCH (19:54)
[2017-05-16] MEDS: Valsartan 80 MG TAB PO SCH (19:55)
[2017-05-16] MEDS: guaiFENesin ER 600 MG TAB PO SCH (19:56)
[2017-05-17] MEDS: Levothyroxine Sodium 25 MCG TAB PO SCH (05:23)
[2017-05-17 05:50] LABS: INR-International Normal Ratio 3.4; Prothrombin Time 35.8 SEC (12.0-14.7)
[2017-05-17 06:31] LABS: Critical Call Chem Troponin I RESULT DECREASING; Troponin I 0.369 ng/mL (< 0.028)
[2017-05-17] MEDS: Carvedilol 3.125 MG TAB PO SCH ×2 (07:56→16:30)
[2017-05-17] MEDS: Spironolactone 25 MG TAB PO SCH (07:57)
[2017-05-17] MEDS: Oseltamivir 75 MG CAP PO SCH (08:41)
[2017-05-17] MEDS: guaiFENesin ER 600 MG TAB PO SCH ×2 (08:42→21:36)
[2017-05-17] MEDS: Tamsulosin HCl 0.4 MG CAP PO SCH (08:42)
[2017-05-17] MEDS: Amiodarone 200 MG TAB PO SCH ×2 (08:42→21:35)
[2017-05-17] MEDS: Cefdinir 300 MG CAP PO SCH ×2 (08:42→21:35)
[2017-05-17] MEDS: Furosemide 20 MG TAB PO SCH (08:42)
--- NOTE | 2017-05-17 11:07 | PDOC.PN ---
- Subjective Encounter Start Date: 05/17/17 Encounter Start Time: 11:00 Subjective: f/u for A-fib RVR now SR on Amiodarone. Also Influenza A + on Tamiflu. -: Feels better overall but still weak. Productive cough. - Objective Resuscitation Status: Resuscitation Status FULL:Full Resuscitation MAR Reviewed: Yes Vital Signs & Weight: Vital Signs (12 hours) Temp Pulse Resp BP Pulse Ox 05/17/17 08:00 98.2 F 72 18 05/17/17 07:53 98.2 F 72 18 122/61 97 05/17/17 04:00 97.8 F 72 20 130/58 L 96 Weight Admit Weight 163 lb Weight 151 lb 11.2 oz I&O: 05/16/17 05/17/17 05/18/17 06:59 06:59 06:59 Intake Total 200 1040 Output Total 375 350 Balance -175 690 Result Diagrams: 05/16/17 05:15 05/16/17 05:15 Additional Labs: Microbiology 05/15/17 11:00 Nasopharyngeal swab Respiratory Virus Panel (PCR) ([facility]) - Final Laboratory Tests 01/31/16 05/06/17 05/15/17 09:55 12:05 01:00 WBC 8.0 Hgb 10.0 L PT INR Uric Acid B-Natriuretic Peptide 1046.3 H 2760.9 H 05/15/17 05/16/17 05/16/17 01:00 05:15 05:15 WBC Hgb PT 28.0 H INR 2.5 Uric Acid 11.6 H B-Natriuretic Peptide 3586.2 H 05/17/17 05:31 WBC Hgb PT 35.8 H INR 3.4 Uric Acid B-Natriuretic Peptide EKG Reviewed by me: Yes (Tele - SR in 60's) Phys Exam - Physical Examination alert, responds to questions HEENT: PERRLA, oral pharynx no lesions Neck: no JVD, supple coarse sounds bilat Cardiovascular: RRR Gastrointestinal: soft, non-tender, no distention, positive bowel sounds Musculoskeletal: no edema, pulses present Neurological: normal sensation, moves all 4 limbs Psychiatric: A&O x 3 Skin: normal turgor, cap refill <2 seconds Dx/Plan (1) Atrial fibrillation Code(s): I48.91 - UNSPECIFIED ATRIAL FIBRILLATION Status: Acute Qualifiers: Atrial fibrillation type: paroxysmal Qualified Code(s): I48.0 - Paroxysmal atrial fibrillation Comment: Continue Amiodarone 400mg BID, Coreg and Coumadin, current SR (2) Influenza A Code(s): J10.1 - FLU DUE TO OTH IDENT INFLUENZA VIRUS W OTH RESP MANIFEST Status: Acute Comment: Tamiflu 75mg BID, respiratory isolation (3) Acute on chronic renal failure Code(s): N17.9 - ACUTE KIDNEY FAILURE, UNSPECIFIED; N18.9 - CHRONIC KIDNEY DISEASE, UNSPECIFIED Status: Acute Comment: Improving, continue to monitor renal function, avoid nephrotoxic meds and contrast media (4) Ischemic cardiomyopathy Code(s): I25.5 - ISCHEMIC CARDIOMYOPATHY Status: Acute Comment: EF 10-15%, continue med mgmt, Lasix 20mg daily (5) Pleural effusion Code(s): J90 - PLEURAL EFFUSION, NOT ELSEWHERE CLASSIFIED Status: Acute Comment: Likely due to Influenza (6) Systolic CHF, acute on chronic Code(s): I50.23 - ACUTE ON CHRONIC SYSTOLIC (CONGESTIVE) HEART FAILURE Status : Acute Comment: See above, compensated currently (7) Anticoagulant long-term use Code(s): Z79.01 - SENIOR CARE (CURRENT) USE OF ANTICOAGULANTS Status: Chronic Comment: Therapeutic INR, continue current dosing - Plan continue antibiotics, PT/OT, nursing home social worker, respiratory therapy, out of bed/ ambulate, DVT proph w/SCDs Stable currently -: Change Tamiflu 30mg BID due to renal function -: Continue Omnicef 300mg BID -: Pulmonary supportive measures -: Continue Amiodarone 400mg BID * AM lab: PT/INR * Likely back to Inpt Rehab in 24h
--- NOTE | 2017-05-17 16:25 | PRG ---
DATE OF SERVICE: 05/17/2017 SUBJECTIVE: This morning, he said he is feeling somewhat better. He is less short of breath, less c ough. PHYSICAL EXAMINATION: VITAL SIGNS: Temperature 97, pulse 63, respirations 18, sats 97%, blood pressure 124/58. CHEST: Decreased breath sounds without any wheezing. CARDIAC: Normal S1, S2. ABDOMEN: Soft, no masses. LABORATORY DATA: Troponin slightly elevated. IMPRESSION: Supraventricular tachycardia, respiratory failure, bronchitis, possibly pneumonia. PLAN: Congestive heart failure, influenza, hyperthyroidism. Continue present treatment, antibiotics , and neb treatments. We will follow.
[2017-05-17] MEDS: Warfarin Sodium 2 MG TAB PO SCH (16:30)
[2017-05-17] MEDS: Oseltamivir 6 MG/ML ORAL SUSP PO SCH (21:34)
[2017-05-17] MEDS: Valsartan 80 MG TAB PO SCH (21:35)
[2017-05-17] MEDS: Atorvastatin Calcium 40 MG TAB PO SCH (21:36)
[2017-05-18] MEDS: Levothyroxine Sodium 25 MCG TAB PO SCH (04:55)
[2017-05-18 05:37] LABS: INR-International Normal Ratio 3.6; Prothrombin Time 37.9 SEC (12.0-14.7)
[2017-05-18] MEDS: Spironolactone 25 MG TAB PO SCH (09:34)
[2017-05-18] MEDS: Tamsulosin HCl 0.4 MG CAP PO SCH (09:34)
[2017-05-18] MEDS: guaiFENesin ER 600 MG TAB PO SCH ×2 (09:34→21:23)
[2017-05-18] MEDS: Amiodarone 200 MG TAB PO SCH ×2 (09:34→21:23)
[2017-05-18] MEDS: Carvedilol 3.125 MG TAB PO SCH ×2 (09:34→17:51)
[2017-05-18] MEDS: Cefdinir 300 MG CAP PO SCH ×2 (09:34→21:24)
[2017-05-18] MEDS: Furosemide 20 MG TAB PO SCH (09:34)
--- NOTE | 2017-05-18 11:01 | PDOC.PN ---
- Subjective Encounter Start Date: 05/18/17 Encounter Start Time: 11:00 Subjective: f/u for Influenza A on Tamiflu. Feeling a little better today but still -: weak. Cough productive. No fever. - Objective Resuscitation Status: Resuscitation Status FULL:Full Resuscitation MAR Reviewed: Yes Vital Signs & Weight: Vital Signs (12 hours) Temp Pulse Resp BP BP Pulse Ox 05/18/17 08:10 98 F 67 20 121/58 L 95 05/18/17 04:00 98.4 F 64 20 113/57 L 91 L 05/18/17 00:00 98 F 62 16 107/55 L 96 Weight Admit Weight 163 lb Weight 150 lb 6.4 oz I&O: 05/17/17 05/18/17 05/19/17 06:59 06:59 06:59 Intake Total 1040 1330 Output Total 350 500 Balance 690 830 Result Diagrams: 05/16/17 05:15 05/16/17 05:15 Additional Labs: Microbiology 05/15/17 11:00 Nasopharyngeal swab Respiratory Virus Panel (PCR) ([facility]) - Final Laboratory Tests 01/31/16 05/06/17 05/15/17 09:55 12:05 01:00 WBC 8.0 Hgb 10.0 L PT INR Uric Acid B-Natriuretic Peptide 1046.3 H 2760.9 H 05/15/17 05/16/17 05/16/17 01:00 05:15 05:15 WBC Hgb PT 28.0 H INR 2.5 Uric Acid 11.6 H B-Natriuretic Peptide 3586.2 H 05/17/17 05/18/17 05:31 05:09 WBC Hgb PT 35.8 H 37.9 H INR 3.4 3.6 Uric Acid B-Natriuretic Peptide EKG Reviewed by me: Yes (Tele - SR in 60's) Phys Exam - Physical Examination alert, responsive HEENT: PERRLA, oral pharynx no lesions Neck: no JVD, supple diminished flow in bases Cardiovascular: RRR Gastrointestinal: soft, non-tender, no distention, positive bowel sounds Musculoskeletal: no edema, pulses present Neurological: normal sensation, moves all 4 limbs Skin: normal turgor, cap refill <2 seconds Dx/Plan (1) Atrial fibrillation Code(s): I48.91 - UNSPECIFIED ATRIAL FIBRILLATION Status: Acute Qualifiers: Atrial fibrillation type: paroxysmal Qualified Code(s): I48.0 - Paroxysmal atrial fibrillation Comment: Continue Amiodarone 400mg BID, Coreg and Coumadin, current SR (2) Influenza A Code(s): J10.1 - FLU DUE TO OTH IDENT INFLUENZA VIRUS W OTH RESP MANIFEST Status: Acute Comment: Tamiflu 75mg BID, respiratory isolation (3) Acute on chronic renal failure Code(s): N17.9 - ACUTE KIDNEY FAILURE, UNSPECIFIED; N18.9 - CHRONIC KIDNEY DISEASE, UNSPECIFIED Status: Acute Comment: Improving, continue to monitor renal function, avoid nephrotoxic meds and contrast media (4) Ischemic cardiomyopathy Code(s): I25.5 - ISCHEMIC CARDIOMYOPATHY Status: Acute Comment: EF 10-15%, continue med mgmt, Lasix 20mg daily (5) Pleural effusion Code(s): J90 - PLEURAL EFFUSION, NOT ELSEWHERE CLASSIFIED Status: Acute Comment: Likely due to Influenza (6) Systolic CHF, acute on chronic Code(s): I50.23 - ACUTE ON CHRONIC SYSTOLIC (CONGESTIVE) HEART FAILURE Status : Acute Comment: See above, compensated currently (7) Anticoagulant long-term use Code(s): 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
[2017-05-18] MEDS: Oseltamivir 6 MG/ML ORAL SUSP PO SCH ×2 (11:18→21:27)
[2017-05-18] MEDS: Warfarin Sodium 2 MG TAB PO SCH (17:52)
--- NOTE | 2017-05-18 19:05 | PRG ---
DATE OF SERVICE: 05/18/2017 SUBJECTIVE: Carlitos is better, less short of breath, still appears to be encephalopathic. OBJECTIVE: VITAL SIGNS: Blood pressure 120/58, pulse , respiration 20, temperature 98, sats 98%. CHEST: No wheezing. CARDIAC: Normal S1, S2. No gallops. ABDOMEN: Soft. No masses. IMPRESSION: 1. Supraventricular tachycardia. 2. Bilateral pleural effusion. 3. Influenza A. 4. Cardiomyopathy. 5. Renal failure. PLAN: Continue aggressive PT and supportive care. Hopefully, he can be discharged to a rehab.
[2017-05-18] MEDS: Valsartan 80 MG TAB PO SCH (21:24)
[2017-05-18] MEDS: Atorvastatin Calcium 40 MG TAB PO SCH (21:24)
[2017-05-19] MEDS: Levothyroxine Sodium 25 MCG TAB PO SCH (05:17)
[2017-05-19 05:18] LABS: INR-International Normal Ratio 3.7; Prothrombin Time 38.1 SEC (12.0-14.7)
--- NOTE | 2017-05-19 09:01 | PDOC.PN ---
- Subjective Encounter Start Date: 05/19/17 Encounter Start Time: 08:59 Mr. Urbina does not have any complaints. He says he is breathing fine, and denies shortness of breath.. He wants to go to Rehab. - Objective Resuscitation Status: Resuscitation Status FULL:Full Resuscitation MAR Reviewed: Yes Vital Signs & Weight: Vital Signs (12 hours) Temp Pulse Resp BP Pulse Ox 05/19/17 04:58 97.8 F 62 22 H 103/70 97 Weight Admit Weight 163 lb Weight 150 lb 6.4 oz I&O: 05/18/17 05/19/17 05/20/17 06:59 06:59 06:59 Intake Total 1330 250 Output Total 500 Balance 830 250 Result Diagrams: 05/16/17 05:15 05/16/17 05:15 Phys Exam - Physical Examination HEENT: PERRLA Respiratory: no wheezing, no rales, clear to auscultation bilateral Cardiovascular: RRR, no significant murmur Gastrointestinal: soft, non-tender, positive bowel sounds Musculoskeletal: no edema Dx/Plan (1) Influenza A Code(s): J10.1 - FLU DUE TO OTH IDENT INFLUENZA VIRUS W OTH RESP MANIFEST Status: Acute Comment: Tamiflu 75mg BID, respiratory isolation (2) Atrial fibrillation Code(s): I48.91 - UNSPECIFIED ATRIAL FIBRILLATION Status: Acute Qualifiers: Atrial fibrillation type: paroxysmal Qualified Code(s): I48.0 - Paroxysmal atrial fibrillation Comment: Continue Amiodarone 400mg BID, Coreg and Coumadin, current SR (3) CKD (chronic kidney disease) stage 4, GFR 15-29 ml/min Code(s): N18.4 - CHRONIC KIDNEY DISEASE, STAGE 4 (SEVERE) Status: Acute (4) CAD (coronary artery disease) Code(s): I25.10 - ATHSCL HEART DISEASE OF [place] CORONARY ARTERY W/O ANG PCTRS Status: Chronic Qualifiers: Coronary Disease-Associated Artery/Lesion type: [place] artery Comment: Completely occluded LAD, inoperable - Plan * AFIB with RVR- he is now in sinus rhythm, on Amiodarone * Pneumonia- resolving- continue Omnicef * Influenza A- continue Tamiflu * CKD- renal function has been stable- check lab work * Continue PT/OT * Awaiting rehab evaluation
[2017-05-19 09:25] LABS: #Eosinphils 0.1 thou/uL (0.0-0.7); #Lymphocytes 0.9 thou/uL (1.20-3.40); #Monocytes 0.8 thou/uL (0.11-0.59); %Basophils 0.5 % (0.0-1.0); %Eosinophils 1.4 % (0.0-10.0); %Lymphocytes 10.2 % (21.0-51.0); %Monocytes 8.9 % (0.0-10.0); %Neutrophils 79.1 % (42.0-75.0); Hemoglobin 9.5 g/dL (14.0-18.0); Mean Corpuscular HGB CONC 32.7 g/dL (32.0-36.0); Mean Corpuscular Hemoglobin 31.8 pg (27.0-31.0); Mean Corpuscular Volume 97.3 fl (80.0-94.0); Mean Platelet Volume 10.1 fL (7.4-10.4); Platelet Count 173 thou/uL (130-400); RBC Distribution Width 13.4 % (11.5-14.5); Red Blood Cell (RBC) Count 2.97 mill/uL (4.70-6.10); White Blood Cell (WBC) Count 8.9 thou/uL (4.8-10.8)
[2017-05-19 09:34] LABS: Anion Gap 14 mmol/L (10-20); BUN (Urea Nitrogen) 27 mg/dL (8.4-25.7); Calc. Creatinine Clearance 26 mL/min (70-130); Calcium 8.4 mg/dL (7.8-10.44); Carbon Dioxide 22 mmol/L (23-31); Chloride 105 mmol/L (98-107); Estimated GFR-MDRD 34; Glucose 100 mg/dL (83-110); Potassium 3.9 mmol/L (3.5-5.1); Sodium 137 mmol/L (136-145)
[2017-05-19] MEDS: Amiodarone 200 MG TAB PO SCH ×2 (09:53→20:45)
[2017-05-19] MEDS: Carvedilol 3.125 MG TAB PO SCH ×2 (09:53→16:18)
[2017-05-19] MEDS: Spironolactone 25 MG TAB PO SCH (09:53)
[2017-05-19] MEDS: Furosemide 20 MG TAB PO SCH (09:54)
[2017-05-19] MEDS: Cefdinir 300 MG CAP PO SCH ×2 (09:54→20:45)
[2017-05-19] MEDS: Oseltamivir 6 MG/ML ORAL SUSP PO SCH ×2 (09:55→21:19)
[2017-05-19] MEDS: guaiFENesin ER 600 MG TAB PO SCH ×2 (09:55→20:45)
[2017-05-19] MEDS: Tamsulosin HCl 0.4 MG CAP PO SCH (09:56)
--- NOTE | 2017-05-19 10:00 | PRG ---
DATE OF SERVICE: 05/19/2017 This morning he is better. He denies any difficulty breathing, coughing or wheezing. Pretty much on oral antibiotics. PHYSICAL EXAMINATION: VITAL SIGNS: Blood pressure 103/70, temperature 97.8, sats 97%, respirations 22. CHEST: Chest reveals decreased breath sounds, no wheezing. CARDIAC: Normal S1, S2. ABDOMEN: Soft, no masses. INR 3.7, creatinine 1.8. White count normal. IMPRESSION: 1. Bilateral pleural effusion. 2. Cardiomyopathy. 3. Pneumonia, improved. 4. Influenza, better. PLAN: Disposition as per primary care physician. He will be discharged back in the next several day s.
[2017-05-19] MEDS ORDERED: Amiodarone 200 MG TAB PO SCH (12:15)
[2017-05-19] MEDS: Atorvastatin Calcium 40 MG TAB PO SCH (20:45)
[2017-05-19] MEDS: Valsartan 80 MG TAB PO SCH (20:46)
[2017-05-20 05:27] LABS: INR-International Normal Ratio 3.6; Prothrombin Time 37.8 SEC (12.0-14.7)
[2017-05-20] MEDS: Levothyroxine Sodium 25 MCG TAB PO SCH (06:33)
[2017-05-20] MEDS: Spironolactone 25 MG TAB PO SCH (08:12)
[2017-05-20] MEDS: Carvedilol 3.125 MG TAB PO SCH ×2 (08:12→17:35)
[2017-05-20] MEDS: Cefdinir 300 MG CAP PO SCH ×2 (08:12→21:56)
[2017-05-20] MEDS: Amiodarone 200 MG TAB PO SCH ×2 (08:12→21:56)
[2017-05-20] MEDS: Furosemide 20 MG TAB PO SCH (08:12)
[2017-05-20] MEDS: guaiFENesin ER 600 MG TAB PO SCH ×2 (08:12→21:56)
[2017-05-20] MEDS: Tamsulosin HCl 0.4 MG CAP PO SCH (08:13)
[2017-05-20 08:50] LABS: Hemoglobin 9.7 g/dL (14.0-18.0)
[2017-05-20] MEDS: Oseltamivir 6 MG/ML ORAL SUSP PO SCH ×2 (08:53→21:56)
--- NOTE | 2017-05-20 10:59 | PRG ---
DATE OF SERVICE: 05/20/2017 Responsive, maybe slightly encephalopathic. PHYSICAL EXAMINATION: VITAL SIGNS: Blood pressure 122/61, O2 sats 98%, temperature 98, pulse 57. He is on amiodarone. CHEST: No wheezing or crackles. CARDIAC: Normal S1-S2. No gallops. ABDOMEN: Soft, no masses. INR 3.6. IMPRESSION: 1. Influenza A on Tamiflu. 2. Hypertension. 3. Supraventricular tachycardia. PLAN: From a pulmonary standpoint of view disposition as per Cardiology. Home any time.
--- NOTE | 2017-05-20 11:18 | PDOC.PN ---
- Subjective Encounter Start Date: 05/20/17 Encounter Start Time: 11:17 Mr. Salamanca was seen today in follow-up of AFIB with RVR. He does not have any complaints today. He denies chest pain or shortness of breath. - Objective Resuscitation Status: Resuscitation Status FULL:Full Resuscitation MAR Reviewed: Yes Vital Signs & Weight: Vital Signs (12 hours) Temp Pulse Resp BP Pulse Ox 05/20/17 07:17 98.1 F 57 L 20 122/61 98 05/20/17 03:41 97.7 F 57 L 19 126/58 L 97 Weight Admit Weight 163 lb Weight 149 lb 8 oz I&O: 05/19/17 05/20/17 05/21/17 06:59 06:59 06:59 Intake Total 250 780 Output Total 300 Balance 250 480 Result Diagrams: 05/20/17 04:53 05/19/17 09:04 Phys Exam - Physical Examination HEENT: PERRLA + rales at the bases Cardiovascular: RRR, no significant murmur Gastrointestinal: soft, non-tender, positive bowel sounds Musculoskeletal: no edema Dx/Plan (1) Influenza A Code(s): J10.1 - FLU DUE TO OTH IDENT INFLUENZA VIRUS W OTH RESP MANIFEST Status: Acute Comment: Tamiflu 75mg BID, respiratory isolation (2) Atrial fibrillation Code(s): I48.91 - UNSPECIFIED ATRIAL FIBRILLATION Status: Acute Qualifiers: Atrial fibrillation type: paroxysmal Qualified Code(s): I48.0 - Paroxysmal atrial fibrillation Comment: Continue Amiodarone 400mg BID, Coreg and Coumadin, current SR (3) CKD (chronic kidney disease) stage 4, GFR 15-29 ml/min Code(s): N18.4 - CHRONIC KIDNEY DISEASE, STAGE 4 (SEVERE) Status: Acute (4) CAD (coronary artery disease) Code(s): I25.10 - ATHSCL HEART DISEASE OF [place] CORONARY ARTERY W/O ANG PCTRS Status: Chronic Qualifiers: Coronary Disease-Associated Artery/Lesion type: [place] artery Comment: Completely occluded LAD, inoperable - Plan * AFIB- his heart rate has remained stable on Amiodarone * CKD stage 4- stable * CAD- stable * Patient is awaiting a bed in Inpatient Rehab.
[2017-05-20] MEDS: Atorvastatin Calcium 40 MG TAB PO SCH (21:56)
[2017-05-20] MEDS: Valsartan 80 MG TAB PO SCH (21:57)
[2017-05-21 05:15] LABS: INR-International Normal Ratio 3.3; Prothrombin Time 35.4 SEC (12.0-14.7)
[2017-05-21] MEDS: Levothyroxine Sodium 25 MCG TAB PO SCH (05:27)
[2017-05-21] MEDS: Spironolactone 25 MG TAB PO SCH (09:04)
[2017-05-21] MEDS: guaiFENesin ER 600 MG TAB PO SCH (09:04)
[2017-05-21] MEDS: Amiodarone 200 MG TAB PO SCH (09:04)
[2017-05-21] MEDS: Cefdinir 300 MG CAP PO SCH (09:04)
[2017-05-21] MEDS: Oseltamivir 6 MG/ML ORAL SUSP PO SCH (09:04)
[2017-05-21] MEDS: Furosemide 20 MG TAB PO SCH (09:04)
[2017-05-21] MEDS: Carvedilol 3.125 MG TAB PO SCH (09:04)
[2017-05-21] MEDS: Tamsulosin HCl 0.4 MG CAP PO SCH (09:04)
--- NOTE | 2017-05-21 12:15 | PDOC.PN ---
- Subjective Encounter Start Date: 05/21/17 Encounter Start Time: 12:13 Mr. Urbina does not have any complaints today. He denies chest pain or shortness of breath. - Objective Resuscitation Status: Resuscitation Status FULL:Full Resuscitation MAR Reviewed: Yes Vital Signs & Weight: Vital Signs (12 hours) Temp Pulse Resp BP Pulse Ox 05/21/17 08:20 97.9 F 67 20 124/57 L 91 L 05/21/17 04:00 98.4 F 67 20 115/57 L 94 L Weight Admit Weight 163 lb Weight 149 lb 12.8 oz I&O: 05/20/17 05/21/17 05/22/17 06:59 06:59 06:59 Intake Total 780 1480 540 Output Total 300 450 Balance 480 1030 540 Result Diagrams: 05/20/17 04:53 05/19/17 09:04 Phys Exam - Physical Examination HEENT: PERRLA Respiratory: no wheezing, no rales, no rhonchi, clear to auscultation bilateral Cardiovascular: RRR, no significant murmur Gastrointestinal: soft, non-tender, positive bowel sounds Musculoskeletal: edema present trace pedal edema Dx/Plan (1) Influenza A Code(s): J10.1 - FLU DUE TO OTH IDENT INFLUENZA VIRUS W OTH RESP MANIFEST Status: Acute Comment: Tamiflu 75mg BID, respiratory isolation (2) Atrial fibrillation Code(s): I48.91 - UNSPECIFIED ATRIAL FIBRILLATION Status: Acute Qualifiers: Atrial fibrillation type: paroxysmal Qualified Code(s): I48.0 - Paroxysmal atrial fibrillation Comment: Continue Amiodarone 400mg BID, Coreg and Coumadin, current SR (3) CKD (chronic kidney disease) stage 4, GFR 15-29 ml/min Code(s): N18.4 - CHRONIC KIDNEY DISEASE, STAGE 4 (SEVERE) Status: Acute (4) CAD (coronary artery disease) Code(s): I25.10 - ATHSCL HEART DISEASE OF [place] CORONARY ARTERY W/O ANG PCTRS Status: Chronic Qualifiers: Coronary Disease-Associated Artery/Lesion type: [place] artery Comment: Completely occluded LAD, inoperable - Plan * Influenza- he has almost completed the Tamiflu course * AFIB with RVR- his heart rate has been stable * Chronic systolic heart failure- stable and compensated * CKD stage 4- his creatinine is a bit elevated, but still within his baseline range * CAD- stable. * Discharge planning is in progress
--- NOTE | 2017-05-21 12:35 | PRG ---
DATE OF SERVICE: 05/21/2017 SUBJECTIVE: Jerry Urbina appears to be better. He is less short of breath. He is still on amiodarone. OBJECTIVE: VITAL SIGNS: Sats are 98% on room air, temperature 97, pulse 67, blood pressure 124/57. CHEST: No wheezing. CARDIAC: Normal S1, S2. No gallops. ABDOMEN: Soft. No masses. IMPRESSION: Supraventricular tachycardia, on amiodarone; influenza A; coronary artery disease; renal failure, improved. PLAN: Disposition as per Cardiology. Continue antibiotics and Tamiflu.
[2017-05-21 13:31] VITALS: BMI 23.4
[2017-05-21 16:18] VITALS: BP 124/67; TEMP 97.1
--- NOTE | 2017-05-21 22:07 | DIS ---
DATE OF ADMISSION: 05/15/2017 DATE OF DISCHARGE: 05/21/2017 PRIMARY CARE PHYSICIAN: Kade Magaña M.D. DISCHARGE DISPOSITION: [facility]. DISCHARGE DIAGNOSES: 1. Atrial fibrillation with rapid ventricular response. 2. Influenza A. 3. History of chronic systolic heart failure with an ejection fraction of 15% to 20%. 4. Coronary artery disease. 5. Hypertension. 6. Dyslipidemia. 7. Hypothyroidism. 8. Severe deconditioning. DISCHARGE MEDICATIONS: Include valsartan 40 mg daily, Flomax 0.4 mg daily, spironolactone 25 mg neil y, Ranexa 1000 mg twice a day, Tamiflu 30 mg twice a day for 2 additional days, loratadine 10 mg as n eeded, levothyroxine 25 mcg daily, DuoNebs p.r.n., Lasix 20 mg daily, Omnicef 300 mg twice a day for 5 days, carvedilol 3.125 mg twice daily, atorvastatin 40 mg at bedtime, aspirin 81 mg daily, and amio darone 200 mg twice a day. PROCEDURES DONE DURING ADMISSION: The patient had an echocardiogram, which demonstrated an ejection fraction of 5% to 10%, severe mitral regurgitation, moderate to severe tricuspid regurgitation, and s evere pulmonary hypertension. CODE STATUS: FULL CODE. ALLERGIES: No known drug allergies. HOSPITAL COURSE: Mr. Urbina is a pleasant 89-year-old gentleman who was admitted to the hospital due to atrial fibrillation with rapid ventricular response. He was recently treated for community-acqui red pneumonia with hypoxic respiratory failure. During his hospital stay, he was seen by Cardiology and started on an amiodarone drip. He was subsequently transitioned to oral amiodarone. He had good control of his heart rate with amiodarone. Coumadin was held due to an elevated INR, however, this will need to be restarted once his INR either become normalized or falls below or become subtherapeut ic. He is also to continue 5 more days of oral antibiotic for the previous diagnosis of pneumonia on his prior hospitalization and also he has 2 more days' worth of the Tamiflu. The patient was subseq uently discharged to the [facility] on 05/21/2017.
== END 2017-05-21 16:55 | DRG 308 ==
LOC: ERS 00:41 → CCU 02:30 → IMCU/EMU 09:24 → 2NO 05-16 18:51
PROVIDERS: ADMIT Internal Medicine; ATTEND Internal Medicine
DX: I48.2 Chronic atrial fibrillation (principal); J10.00 Influenza due to other identified influenza virus with unspecified type of pneumonia; I50.23 Acute on chronic systolic (congestive) heart failure; N18.4 Chronic kidney disease, stage 4 (severe); I24.8 Other forms of acute ischemic heart disease; I27.20 Pulmonary hypertension, unspecified; N17.9 Acute kidney failure, unspecified; I13.0 Hypertensive heart and chronic kidney disease with heart failure and stage 1 through stage 4 chronic kidney disease, or unspecified chronic kidney disease; I08.1 Rheumatic disorders of both mitral and tricuspid valves; D64.9 Anemia, unspecified; I44.7 Left bundle-branch block, unspecified; I25.10 Atherosclerotic heart disease of native coronary artery without angina pectoris; Z79.01 Long term (current) use of anticoagulants; Z79.82 Long term (current) use of aspirin; E78.5 Hyperlipidemia, unspecified; E03.9 Hypothyroidism, unspecified; Z85.828 Personal history of other malignant neoplasm of skin; N40.0 Benign prostatic hyperplasia without lower urinary tract symptoms; I47.1 Supraventricular tachycardia; I48.0 Paroxysmal atrial fibrillation; I25.5 Ischemic cardiomyopathy
CPT/HCPCS: 36415; 71045; 80048; 80053; 82330; 82553; 82803; 83605; 83880; 84484; 84550; 85014; 85018; 85025; 85610; 85730; 87633; 93005; 93306; 93798; 94640; 96365; 96366; 96367; 96375; G8978-GP-CL; G8979-GP-CJ; G8987-GO-CK; G8988-GO-CI; G8996-GN-CK; G8996-GN-CL; G8997-GN-CJ; J0282; J1160; J2543; J3370; J3475; J7050; J7070; J7611

== ENCOUNTER 2017-05-24 13:03 | Inpatient (IN) | payer MEDICARE ==
[2017-05-24 13:45] LABS: Actual Bicarbonate (HCO3a) 21.2 mEq/L (22-26); Base Excess (BEa) -3.2 mEq/L (0 (+/-) 2.5); Hematocrit-ABG 31.3 % (42.0-52.0); Hemoglobin (Hb) 9.5 g/dL (14.0-18.0); O2 Tension (PaO2) 150.2 mmHg (80.0-100.0)
[2017-05-24] MEDS ORDERED: Piperacillin/Tazobactam 3.375 GM in Sodium Chloride 0.9% 100 ML IVPB ONE (13:45)
[2017-05-24 13:46] LABS: Analyzer IN Cardio ER; Calcium, Ionized 1.2 mmol/L (1.12-1.30); Puncture Site LRA
[2017-05-24 14:05] LABS: ALT (SGPT) 17 U/L (8-55); AST (SGOT) 26 U/L (5-34); Albumin 3.4 g/dL (3.4-4.8); Alkaline Phosphatase 62 U/L (40-150); Anion Gap 16 mmol/L (10-20); BUN (Urea Nitrogen) 32 mg/dL (8.4-25.7); Bilirubin, Total 0.9 mg/dL (0.2-1.2); CK (CPK) 109 U/L (30-200); Calc. Creatinine Clearance 0 mL/min (70-130); Calcium 8.7 mg/dL (7.8-10.44); Carbon Dioxide 20 mmol/L (23-31); Chloride 104 mmol/L (98-107); Estimated GFR-MDRD 36; Globulin 3.1 g/dL (2.4-3.5); Glucose 106 mg/dL (83-110); Lipase 57 U/L (8-78); Potassium 4.9 mmol/L (3.5-5.1); Protein, Total 6.5 g/dL (5.8-8.1); Sodium 135 mmol/L (136-145)
[2017-05-24 14:06] LABS: #Lymphocytes 0.8 thou/uL (1.20-3.40); #Monocytes 0.7 thou/uL (0.11-0.59); #Neutrophils 8.4 thou/uL (1.40-6.50); %Basophils 0.1 % (0.0-1.0); %Eosinophils 0.5 % (0.0-10.0); %Lymphocytes 7.9 % (21.0-51.0); %Monocytes 7.1 % (0.0-10.0); %Neutrophils 84.5 % (42.0-75.0); Hemoglobin 10.2 g/dL (14.0-18.0); Mean Corpuscular HGB CONC 31.7 g/dL (32.0-36.0); Mean Corpuscular Hemoglobin 31.1 pg (27.0-31.0); Mean Corpuscular Volume 98.1 fl (80.0-94.0); Mean Platelet Volume 10.1 fL (7.4-10.4); Platelet Count 188 thou/uL (130-400); RBC Distribution Width 14.1 % (11.5-14.5); Red Blood Cell (RBC) Count 3.29 mill/uL (4.70-6.10)
[2017-05-24 14:13] LABS: INR-International Normal Ratio 2.1
[2017-05-24 14:14] LABS: PTT 44.1 SEC (22.9-36.1)
[2017-05-24 14:17] LABS: Troponin I 0.139 ng/mL (< 0.028)
[2017-05-24 14:22] LABS: CKMB 7.2 ng/mL (0-6.6)
--- NOTE | 2017-05-24 14:51 | RAD ---
SINGLE VIEW OF THE CHEST: COMPARISON: 05/15/17. HISTORY: Altered mental status. Influenza. FINDINGS: A single view of the chest shows a normal-size cardiomediastinal silhouette. There are small bilater al pleural effusions. No consolidation or mass are seen. IMPRESSION: Small bilateral pleural effusions. POS: [facility]
[2017-05-24 14:56] LABS: Bilirubin Small (Negative); Blood, Urine Negative (Negative); Clarity CLEAR (Clear); Glucose, Urine (Dipstick) Negative (Negative); Leukocyte Trace (Negative); Nitrite Negative (Negative); Protein, Urine (Dipstick) Negative (Neg-Trace); Specific Gravity, Urine 1.024 (1.002-1.036); Urobilinogen 0.2 mg/dL (0.2-1.0)
[2017-05-24 15:02] LABS: Bacteria/HPF None Seen HPF (None Seen); Squamous Epithelial 0-3 HPF (0-3); WBC/HPF 0-3 HPF (0-3)
[2017-05-24 15:17] LABS: Other Casts/LPF None Seen LPF (0-3 Hyaline)
[2017-05-24 15:18] LABS: Renal Epithelial None Seen HPF (0-3); Transitional Epithelial NONE SEEN HPF (0-3)
--- NOTE | 2017-05-24 15:39 | CT ---
CT OF THE BRAIN WITHOUT CONTRAST: COMPARISON: None. HISTORY: Altered mental status. Flu. TECHNIQUE: Multiple contiguous axial images were obtained in a CT of the brain without contrast. FINDINGS: There are scattered hypodensities in the subcortical and periventricular white matter, likely seconda ry to small-vessel ischemic disease. No large confluent infarction is seen. There is no evidence of hydrocephalus, intracranial hemorrhage, or extraaxial fluid collection. The calvarium and overlying soft tissues are unremarkable. The visualized paranasal sinuses and mast oid air cells are well aerated. IMPRESSION: No evidence of acute intracranial abnormality. POS: [facility]
[2017-05-24] MEDS ORDERED: Ondansetron HCl/PF 4 MG/2 ML Vial IVP PRN (15:51)
[2017-05-24] MEDS ORDERED: Acetaminophen 325 MG TAB PO PRN (15:51)
[2017-05-24] MEDS ORDERED: Ondansetron ODT 4 MG TAB PO PRN (15:51)
[2017-05-24] MEDS ORDERED: Furosemide 40 MG/4 ML VIAL ONE (16:19)
[2017-05-24 17:05] LABS: Troponin I 0.142 ng/mL (< 0.028)
[2017-05-24 19:53] LABS: Troponin I 0.147 ng/mL (< 0.028)
[2017-05-24] MEDS: cefTRIAXone\\ROCEPHIN 2 GM in Sodium Chloride 0.9% 100 ML IVPB SCH (20:51)
[2017-05-25 03:52] LABS: #Lymphocytes 0.6 thou/uL (1.20-3.40); #Monocytes 0.7 thou/uL (0.11-0.59); #Neutrophils 6.9 thou/uL (1.40-6.50); %Basophils 0.3 % (0.0-1.0); %Eosinophils 0.4 % (0.0-10.0); %Lymphocytes 7.7 % (21.0-51.0); %Neutrophils 83.6 % (42.0-75.0); Hemoglobin 9.1 g/dL (14.0-18.0); Mean Corpuscular Hemoglobin 31.7 pg (27.0-31.0); Mean Corpuscular Volume 98.9 fl (80.0-94.0); Mean Platelet Volume 9.9 fL (7.4-10.4); Platelet Count 155 thou/uL (130-400); RBC Distribution Width 14.2 % (11.5-14.5); Red Blood Cell (RBC) Count 2.86 mill/uL (4.70-6.10); White Blood Cell (WBC) Count 8.2 thou/uL (4.8-10.8)
[2017-05-25 04:05] LABS: Anion Gap 16 mmol/L (10-20); BUN (Urea Nitrogen) 32 mg/dL (8.4-25.7); Calc. Creatinine Clearance 28 mL/min (70-130); Calcium 8.3 mg/dL (7.8-10.44); Carbon Dioxide 20 mmol/L (23-31); Chloride 106 mmol/L (98-107); Estimated GFR-MDRD 37; Glucose 81 mg/dL (83-110); Potassium 4.5 mmol/L (3.5-5.1); Sodium 137 mmol/L (136-145)
[2017-05-25 04:46] VITALS: BMI 24.2
[2017-05-25] MEDS: Furosemide 40 MG/4 ML VIAL SLOW IVP SCH ×2 (05:49→14:01)
--- NOTE | 2017-05-25 06:48 | HP ---
CHIEF COMPLAINT: Shortness of breath and an altered mental status. HISTORY OF PRESENT ILLNESS: This is an 89-year-old gentleman who has been in and out of the hospital , got discharged to rehab and came back within 24 hours, now he has gone back to rehab and is back ag n with similar complaint of shortness of breath, mental status change. Could not get much of any h istory from this patient. The clinical evaluation in the ER did reveal significant amount of pleural effusion as well as altered mental status. Patient also noted to be very hypoxic and status post __ ___. There seems to be improvement in the mental status of this patient. Further imaging studies di d reveal bilateral pleural effusion. As a result of the constellation of these findings, the kyree n has been taken to involve renal in the management of this case. Past medical history, family history, social history still remains the same, please refer to the rece nt history and physical. REVIEW OF SYSTEMS: As documented in the body of the history. All the other systems were reviewed an d were found not to be significantly related to the presenting illness. PHYSICAL EXAMINATION: SKIN: No new gross rash. LYMPHATICS: No peripheral lymphadenopathy. GENERAL: The patient was found not to be in any obvious distress, hemodynamically stable. On examin ation, the patient was found to be ill-looking, noted with the following vital signs. VITAL SIGNS: Afebrile with temperature 97.8, pulse 117, respiratory rate 22, O2 sat of 97% on 2 lite rs, blood pressure 107/64. HEENT: Unremarkable with moist oral mucosa. No conjunctival injection or icterus. NECK: Supple. CARDIOVASCULAR SYSTEM: First and second heart sounds were heard. RESPIRATORY SYSTEM: Clear to auscultation. DIGESTIVE: Revealed a benign abdomen with positive bowel sounds. EXTREMITIES: No peripheral edema. IMPRESSION: 1. Acute on chronic respiratory failure in the context of bilateral pleural effusion and decompensat ed lung function. 2. Bilateral pleural effusion. 3. Failing to thrive. 4. Tachycardia in the context of arrhythmia. PLAN: 1. Admit patient to the floor with close monitoring. 2. Parenteral diuresis. 3. Further management to be dependent on the clinical course.
[2017-05-25] MEDS: Enoxaparin Sodium 30 MG/0.3 ML SYRINGE SC SCH (08:43)
--- NOTE | 2017-05-25 08:58 | PDOC.PN ---
- Subjective Encounter Start Date: 05/25/17 Encounter Start Time: 08:57 Subjective: Seen and examined feeling so much better - Objective Vital Signs & Weight: Vital Signs (12 hours) Temp Pulse Resp BP Pulse Ox 05/25/17 07:05 98.0 F 60 16 112/45 L 100 05/25/17 00:00 97.1 F L 56 L 20 113/49 L 100 05/24/17 21:30 98.0 F 56 L 18 106/44 L Weight Weight 154 lb 12.8 oz I&O: 05/24/17 05/25/17 05/26/17 06:59 06:59 06:59 Intake Total 350 Output Total 1000 Balance -650 Result Diagrams: 05/25/17 03:41 05/25/17 03:41 Phys Exam - Physical Examination Constitutional: NAD HEENT: PERRLA, moist MMs, sclera anicteric, TM's clear, oral pharynx no lesions Neck: no nodes, no JVD, supple, full ROM Respiratory: no wheezing, no rales, no rhonchi Cardiovascular: RRR, no significant murmur, no rub Gastrointestinal: soft, non-tender, no distention Musculoskeletal: pulses present, edema present Neurological: non-focal, normal sensation, moves all 4 limbs Dx/Plan (1) Atrial fibrillation Code(s): I48.91 - UNSPECIFIED ATRIAL FIBRILLATION Status: Acute Qualifiers: Comment: Continue Amiodarone 400mg BID, Coreg and Coumadin, current SR (2) CKD (chronic kidney disease) stage 4, GFR 15-29 ml/min Code(s): N18.4 - CHRONIC KIDNEY DISEASE, STAGE 4 (SEVERE) Status: Acute (3) Ischemic cardiomyopathy Code(s): I25.5 - ISCHEMIC CARDIOMYOPATHY Status: Acute Comment: EF 10-15%, continue med mgmt, Lasix 20mg daily (4) Pleural effusion Code(s): J90 - PLEURAL EFFUSION, NOT ELSEWHERE CLASSIFIED Status: Acute Comment: Likely due to Influenza (5) Pneumonia Code(s): J18.9 - PNEUMONIA, UNSPECIFIED ORGANISM Status: Acute Comment: Rocephin and Azithromycin beginning 05/06/17, switch to oral abx 05/08/17 (6) Systolic CHF, acute on chronic Code(s): I50.23 - ACUTE ON CHRONIC SYSTOLIC (CONGESTIVE) HEART FAILURE Status : Acute Comment: See above, compensated currently - Plan liu catheter, 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
[2017-05-25] MEDS ORDERED: Prevnar 13-Val Conj/PF 0.5 ML SYRINGE IM ONE (09:00)
[2017-05-25] MEDS ORDERED: FLU VACC TS2017-18 (>65YR) 0.5 ML SYRINGE IM ONE (09:00)
[2017-05-25] MEDS ORDERED: Nitroglycerin 0.4 MG TAB (25 Tab Bottle) SL PRN (09:12)
[2017-05-25] MEDS ORDERED: Loperamide HCl 2 MG CAP PO PRN (09:44)
[2017-05-25] MEDS: Guaifenesin DM 100-10/5 ML UDCUP PO SCH ×2 (14:01→20:52)
[2017-05-25] MEDS ORDERED: guaiFENesin/Dextromethorphan 10 ML UDCUP PO SCH (15:00)
[2017-05-25] MEDS: Carvedilol 3.125 MG TAB PO SCH (17:50)
[2017-05-25] MEDS: cefTRIAXone\\ROCEPHIN 2 GM in Sodium Chloride 0.9% 100 ML IVPB SCH (17:51)
[2017-05-25] MEDS: Warfarin Sodium 3 MG TAB PO SCH (17:51)
[2017-05-25] MEDS: Valsartan 80 MG TAB PO SCH (20:51)
[2017-05-25] MEDS: Atorvastatin Calcium 40 MG TAB PO SCH (20:51)
[2017-05-25] MEDS: guaiFENesin ER 600 MG TAB PO SCH (20:51)
[2017-05-25] MEDS: Amiodarone 200 MG TAB PO SCH (20:51)
--- NOTE | 2017-05-25 23:49 | CON ---
DATE OF CONSULTATION: 05/25/2017 HISTORY OF PRESENT ILLNESS: Mr. Urbina is an 89-year-old male. He was seen by Dr. Garcia on 05/16/2017 when he was admitted with rapid atrial fibrillation and a pleural effusion. Medications were reviewed. The patient was examined. He also was found at that time to have influenza A. He was started on Tamiflu. It was not recommended that he undergo a thoracentesis. He was seen last by Dr. Garcia on the , which is the day of his discharge. Apparently, he was in stable condition at that time. He is to go to the [facility]. He was discharged on the . He came back on the . I was consulted today because of his presence in the intermediate care unit. He presented with altered mental status reportedly. His mental status improved after he arrived from what I have been told. He was noted to be hypoxic, was placed on oxygen, and it improved. He has no complaints. . PAST MEDICAL HISTORY: Remarkable for, 1. Atrial fibrillation. 2. History of an ejection fraction of 15%-20%. 3. History of coronary disease with an occluded LAD. 4. History of anticoagulation for his atrial fibrillation. 5. Hypertension. 6. Lipid disorder. 7. Hypothyroidism. 8. History of skin cancer. 9. History of inguinal herniorrhaphy x2. FAMILY HISTORY: Positive for vascular disease. Negative for lung disease in early age. SOCIAL HISTORY: Nonsmoker, nondrinker. He does not use drugs. He is currently residing in [facility]. REVIEW OF SYSTEMS: Otherwise negative, although he is not a reliable historian. His really did not add much to the H&P. PHYSICAL EXAMINATION: GENERAL: He is in no distress, lying flat in bed. He is afebrile, heart rate 62, respiratory rate is 20, oximetry is 100% on 2 liters, blood pressure 114/53. HEENT: Sclerae are anicteric. Extraocular movements appear full. NECK: Supple. LUNGS: Clear. HEART: Regular rhythm. ABDOMEN: Soft and nontender. EXTREMITIES: Without asymmetry. LABORATORY DATA: White count 8.2, hemoglobin 9.1, platelets 155,000. Electrolytes are normal. BUN 32; and creatinine 1.75, was 1.78 yesterday. Chest radiograph was reviewed by me and compared to his 05/15/2017 film, small bilateral effusions. These were insignificant. IMPRESSION: 1. Chronic cardiomyopathy. 2. History of atrial fibrillation. 3. History of anticoagulation. 4. Deconditioning. 5. Hypoxemia, most likely related to atelectasis. Medications have been reviewed. I do not really see a clear indication for IV antibiotics and definitely do not see a clear indication for 2 IV antibiotics. Blood cultures were negative. These should be discontinued. He is certainly with frequent admissions at risk for Clostridium difficile with his ongoing prescribing of strong IV antibiotics. Cardiology should be notified of his admission. I really do not find much in the way of an acute illness at this time. This is a 50-minute consult, greater than 50% of the time was spent on the unit coordinating care; and reviewing records, radiographs, and labs. DENISE
--- NOTE | 2017-05-26 00:35 | ADD-ER ---
ADDENDUM DATE OF SERVICE: 05/24/2017 Please refer to the patient's electronic medical record for further details of his visit. In summary, the patient presented with altered mental status and hypoxia. On arrival, the patient wa s poorly responsive, did withdraw to the pain and localized pain, was not verbal on arrival. He was reportedly hypoxic prior to arrival. He was recently discharged from the hospital after an episode o f influenza as well as congestive heart failure. He was given supplemental oxygen with normal oxygen saturations throughout his ER stay. He remained hemodynamically stable during his ER stay as well, with her initial tachycardia, improving with treatment. He was not febrile, and does not appear sept ic. His chest x-ray reveals bilateral pleural effusions, concerning for an exacerbation of his conge stive heart failure, likely ongoing due to his influenza. Shortly after his arrival, the patient's m entation markedly improved, and he was able to answer questions and follow commands. He remained in this mental state throughout the remainder of his ER stay. He was treated with antibiotics as well a s aspirin and Lasix, concern for volume overload. He was evaluated by Dr. Dee while in the Em ergency Department, and is in guarded condition upon admission to the [facility]. He had no family at the bedside.
[2017-05-26] MEDS: Furosemide 40 MG/4 ML VIAL SLOW IVP SCH ×2 (05:32→15:26)
[2017-05-26] MEDS: Levothyroxine Sodium 25 MCG TAB PO SCH (05:32)
[2017-05-26] MEDS: Amiodarone 200 MG TAB PO SCH ×2 (08:15→20:43)
[2017-05-26] MEDS: Carvedilol 3.125 MG TAB PO SCH ×2 (08:15→17:30)
[2017-05-26] MEDS: Enoxaparin Sodium 30 MG/0.3 ML SYRINGE SC SCH (08:15)
[2017-05-26] MEDS: Spironolactone 25 MG TAB PO SCH (08:15)
[2017-05-26] MEDS: Guaifenesin DM 100-10/5 ML UDCUP PO SCH ×3 (08:16→20:43)
[2017-05-26] MEDS: Tamsulosin HCl 0.4 MG CAP PO SCH (08:16)
[2017-05-26] MEDS: guaiFENesin ER 600 MG TAB PO SCH ×2 (08:16→20:43)
--- NOTE | 2017-05-26 10:27 | PRG ---
DATE OF SERVICE: 05/26/2017 This morning he is awake, alert, responsive, appears to be in no distress. He is , he is severely deconditioned, but clearly at baseline encephalopathic. Recently had influenza and received 5 days of antibiotic medication. PHYSICAL EXAMINATION: VITAL SIGNS: His vital signs this morning are pretty good, sat 100% on 2 liters, temperature is 97, blood pressure 124/80, pulse 58, respirations 18. CHEST: Chest revealed decreased breath sounds, no wheezing. CARDIAC: Normal S1, S2. No gallops. LABORATORY: On his x-ray I see no acute infiltrates, cardiomegaly with a very small pleural effusion . His white count was normal 8000, H&H is 9 and 28, platelet count is 155. His chemistry profile sh ows creatinine 1.7. IMPRESSION: 1. Encephalopathy. 2. Severe deconditioning. 3. Congestive heart failure. 4. Supraventricular tachycardia. PLAN: No evidence of pneumonia, all antibiotics have been discontinued. Once again, I will switch him over to some oral antibiotics, aggressive PT and supportive care. I will follow while he is in IMCU. He probably can be transferred soon back to rehab.
--- NOTE | 2017-05-26 13:41 | PDOC.PN ---
- Subjective Encounter Start Date: 05/26/17 Encounter Start Time: 14:00 Subjective: Patient reports no SOB, moderate cough. Doesn't remember what happeded at -: rehab before came in, just felt a bit dizzy, then woke up in ER and couldn' -: talk at first, resolved with O2. - Objective MAR Reviewed: Yes Vital Signs & Weight: Vital Signs (12 hours) Temp Pulse Resp BP BP BP BP 05/26/17 13:17 108/47 L 95/64 105/46 L 05/26/17 11:08 98.2 F 56 L 20 92/48 L 05/26/17 07:38 97.0 F L 60 19 05/26/17 07:00 97.0 F L 60 19 125/54 L 05/26/17 04:00 57 L 18 105/45 L 05/26/17 02:30 60 18 106/45 L Pulse Ox 05/26/17 13:17 05/26/17 11:08 99 05/26/17 07:38 100 05/26/17 07:00 99 05/26/17 04:00 99 05/26/17 02:30 99 Weight Weight 151 lb 1.6 oz I&O: 05/25/17 05/26/17 05/27/17 06:59 06:59 06:59 Intake Total 350 780 Output Total 1000 2325 Balance -650 -1545 Result Diagrams: 05/25/17 03:41 05/25/17 03:41 Phys Exam - Physical Examination Constitutional: NAD HEENT: moist MMs Respiratory: no wheezing, no rales, no rhonchi Cardiovascular: RRR Gastrointestinal: soft, positive bowel sounds Musculoskeletal: edema present Neurological: non-focal, moves all 4 limbs Psychiatric: normal affect Dx/Plan (1) Acute and chronic respiratory failure Code(s): J96.20 - ACUTE AND CHR RESP FAILURE, UNSP W HYPOXIA OR HYPERCAPNIA Status: Acute Qualifiers: Respiratory failure complication: hypoxia Qualified Code(s): J96.21 - Acute and chronic respiratory failure with hypoxia Comment: Likley secondary to atelectasis, pulmonology following (2) Systolic CHF, acute on chronic Code(s): I50.23 - ACUTE ON CHRONIC SYSTOLIC (CONGESTIVE) HEART FAILURE Status : Acute Comment: IV diuretics, cardiology consulted (3) Atrial fibrillation Code(s): I48.91 - UNSPECIFIED ATRIAL FIBRILLATION Status: Chronic Qualifiers: Comment: Continue Amiodarone 400mg BID, Coreg and Coumadin, current SR (4) Anticoagulant long-term use Code(s): 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 - Discharge Day Encounter end time: 14:15
[2017-05-26] MEDS: Warfarin Sodium 3 MG TAB PO SCH (17:31)
--- NOTE | 2017-05-26 19:13 | CON ---
DATE OF CONSULTATION: 05/26/2017 REASON FOR CONSULTATION: Congestive heart failure. PRIMARY CLIENT SUPPORT ANALYST: Dr. Hernandez Montanez. HISTORY OF PRESENT ILLNESS: Mr. Urbina is a pleasant 89-year-old gentleman. The patient has had the [facility] hospitalizations with heart failure. He was admitted to the hospital earlier this month and he was readmitted to the hospital apparently this weekend. The patient was seen 05/16/2017 with atrial fibrillation with a rapid rate and pleural effusion. At that time, he also had influenza A and was given Tamiflu. The patient was discharged on the , but came back on the . The reason for readmission was shortness of breath and mental status change. PAST MEDICAL HISTORY: Congestive heart failure, systolic, chronic. REVIEW OF SYSTEMS: Not reliable. The patient is unable to give an adequate review of systems; howev er, the following could be ascertained. VISION: No changes. HEARING: No changes. PULMONARY: He is not having trouble breathing now. CARDIAC: No chest pain now. GASTROINTESTINAL: No nausea, vomiting, diarrhea now. SKIN: No rashes. PERTINENT MEDICATIONS: 1. Amiodarone 200 mg twice daily. 2. Diovan. 3. Flomax. 4. Coumadin. 5. Carvedilol. 6. Ranexa. 7. Lipitor. 8. Lasix, currently intravenous 9. Spironolactone. PHYSICAL EXAMINATION: GENERAL: A delightful, frail, elderly gentleman, in no distress. VITAL SIGNS: Blood pressure 116/47, pulse 64 and regular. EYES: Sclerae nonicteric. MOUTH: Mucous membranes moist. NECK: Supple. No lymphadenopathy. LUNGS: Clear. No wheezing, rales or rhonchi. CARDIOVASCULAR: Normal S1, normal S2. There is no murmur, rub or gallop. ABDOMEN: Soft, nontender. EXTREMITIES: There is no clubbing. There is no cyanosis. There is moderate peripheral edema. Extr emities are cool, but not cold. PERTINENT LABORATORY: Hemoglobin 9.1, creatinine 1.75. Troponin 0.147. Chest x-ray shows small parish ateral pleural effusions. ASSESSMENT: 1. Congestive heart failure, systolic, chronic. Most recent ejection fraction 15% to 20%. 2. Inoperable coronary disease. 3. Amiodarone apparently for atrial fibrillation, maintaining sinus rhythm. PLAN: 1. He continues intravenous diuretics, probably change to oral tomorrow. 2. Continue Coumadin. The INR is 2.1. 2. Dr. Montanez will come back to see the patient tomorrow. I suspect go back to oral diuretics yohana orrow.
[2017-05-26] MEDS: Atorvastatin Calcium 40 MG TAB PO SCH (20:43)
[2017-05-26] MEDS: Valsartan 80 MG TAB PO SCH (20:43)
[2017-05-27] MEDS: Levothyroxine Sodium 25 MCG TAB PO SCH (06:20)
[2017-05-27] MEDS: Furosemide 40 MG/4 ML VIAL SLOW IVP SCH (06:20)
--- NOTE | 2017-05-27 08:36 | PRG ---
DATE OF SERVICE: 05/27/2017 Mr. Urbina this morning is awake, alert, responsive. No shortness of breath. PHYSICAL EXAMINATION: VITAL SIGNS: His O2 saturation 98% on 2 liters, temperature 98, blood pressure 88/49. CHEST: Chest revealed decreased breath sounds, no wheezing. CARDIAC: Normal S1-S2. ABDOMEN: Soft, no masses. IMPRESSION: 1. Chronic obstructive pulmonary disease. 2. Congestive heart failure. 3. Pleural effusion, stable. 4. Azotemia. PLAN: From a pulmonary standpoint he can be sent back to the rehab when okay with Cardiology. Avoid antibiotics. Supportive care. I will follow.
[2017-05-27] MEDS: Spironolactone 25 MG TAB PO SCH (08:44)
[2017-05-27] MEDS: Carvedilol 3.125 MG TAB PO SCH ×2 (08:44→15:55)
[2017-05-27] MEDS: Tamsulosin HCl 0.4 MG CAP PO SCH (08:45)
[2017-05-27] MEDS: Guaifenesin DM 100-10/5 ML UDCUP PO SCH ×2 (08:45→15:54)
[2017-05-27] MEDS: guaiFENesin ER 600 MG TAB PO SCH (08:45)
[2017-05-27] MEDS: Amiodarone 200 MG TAB PO SCH (08:45)
--- NOTE | 2017-05-27 11:55 | PDOC.PN ---
- Subjective Encounter Start Date: 05/27/17 Encounter Start Time: 12:50 Subjective: No SOB. Sitting up in chair. No complaints. - Objective MAR Reviewed: Yes Vital Signs & Weight: Vital Signs (12 hours) Temp Pulse Resp BP Pulse Ox 05/27/17 08:09 98.2 F 55 L 18 88/49 L 98 05/27/17 07:45 97.5 F L 56 L 18 98 05/27/17 04:00 97.5 F L 56 L 18 107/56 L 97 05/27/17 00:04 97.6 F 57 L 20 93/44 L 99 Weight Weight 149 lb 7 oz I&O: 05/26/17 05/27/17 05/28/17 06:59 06:59 06:59 Intake Total 780 1250 Output Total 2326 1725 Balance -1545 -475 Result Diagrams: 05/25/17 03:41 05/25/17 03:41 Phys Exam - Physical Examination Constitutional: NAD HEENT: moist MMs Neck: no JVD Respiratory: no wheezing, no rales, no rhonchi Cardiovascular: RRR Gastrointestinal: soft, positive bowel sounds Musculoskeletal: edema present trace bilateral pretibial Neurological: non-focal, moves all 4 limbs Psychiatric: normal affect, A&O x 3 Dx/Plan (1) Systolic CHF, acute on chronic Code(s): I50.23 - ACUTE ON CHRONIC SYSTOLIC (CONGESTIVE) HEART FAILURE Status : Acute Comment: switched to oral diuretics (2) Acute and chronic respiratory failure Code(s): J96.20 - ACUTE AND CHR RESP FAILURE, UNSP W HYPOXIA OR HYPERCAPNIA Status: Acute Qualifiers: Respiratory failure complication: hypoxia Qualified Code(s): J96.21 - Acute and chronic respiratory failure with hypoxia Comment: Likley secondary to atelectasis, pulmonology following (3) Atrial fibrillation Code(s): I48.91 - UNSPECIFIED ATRIAL FIBRILLATION Status: Chronic Qualifiers: Comment: Continue Amiodarone 400mg BID, Coreg and Coumadin, current SR (4) Anticoagulant long-term use Code(s): Z79.01 - RESIDENTIAL (CURRENT) USE OF ANTICOAGULANTS Status: Chronic Comment: Therapeutic INR, continue current dosing (5) Ischemic cardiomyopathy Code(s): I25.5 - ISCHEMIC CARDIOMYOPATHY Status: Chronic Comment: EF 10-15% - Plan cont current plan of care switch back to oral diuretics and back to rehab when ok with cardiology, -: will likely need to stay on a little bit of oxygen there -: d/c alexa * . - Discharge Encounter end time: 13:05
[2017-05-27] MEDS ORDERED: Furosemide 40 MG TAB PO SCH (14:00)
--- NOTE | 2017-05-27 14:03 | DIS ---
PRIMARY CARE PHYSICIAN: [facility]. DIAGNOSES ON ADMISSION: 1. Acute on chronic respiratory failure, with hypoxia. 2. Bilateral pleural effusions. 3. Failure to thrive. 4. Tachycardia in the context of arrhythmia. DISCHARGE DIAGNOSES: 1. Acute on chronic systolic congestive heart failure. 2. Acute on chronic hypoxic respiratory failure. 3. Chronic atrial fibrillation. 4. Long-term Coumadin use. 5. Ischemic cardiomyopathy with an ejection fraction of 10%-15%. PROCEDURES: CT of the brain showing no evidence for acute intracranial abnormality. CONSULTATIONS: 1. Pulmonology, Dr. Harrell. 2. Cardiology, Dr. Hoyt for Dr. Montanez. SUMMARY OF HOSPITAL COURSE: This is an 89-year-old white male well known to our service, has been in the hospital multiple times over the last month first for pneumonia with a NSTEMI and then again phillip gnosed with influenza and CHF exacerbation. The patient was discharged to [facility] on the , and then 3 days later, he was noted to have decreased responsiveness. He was brought to the em ergency room where he was not talking or responding. He had nasal cannula oxygen started and then he came back to his normal mental status within a few minutes and has been stable since then. He has n ever experienced any shortness of breath, chest pain, or other symptoms. The patient had previously been on some oxygen in the hospital, but when he is discharged, he was on an as needed and was not on it at the [facility]. In the hospital, the Pulmonology was consulted and they determined that he did not have pneumonia or other acute infectious process. Cardiology was consulted. Dr. Hoyt saw the pat ient and then Dr. Montanez saw on the day of discharge. Patient had IV diuresis with Lasix with a co uple of liters of fluid off and was breathing well without difficulty. He has remained on 2 liters o f oxygen in the hospital with sats around 97%-100%. He does have a little bit of orthostatic hypoten johanna with blood pressures dropping when he sits up or stands up. The patient is back to his previous baseline, and the day of discharge, was cleared by Cardiology and Pulmonology to discharge to the [facility] with a stipulation that he stays on the 2 liters of oxygen at all times to prevent recurre nce of previous episode. DISCHARGE DIS[facility]ITION[facility] ACTIVITIES: As tolerated. DIET: Healthy heart, fluid restricted, low sodium diet. Occupational and physical therapy. He stays on 2 liters of oxygen via nasal cannula. DISCHARGE MEDICATIONS: Patient is to resume all his previous medications. 1. Warfarin 3 mg daily. 2. Nitroglycerin 0.4 mg sublingual as needed. 3. Loperamide as needed. 4. Robitussin 20 mL 3 times a day. 5. Florastor as needed for diarrhea. 6. Amiodarone 200 mg twice a day. 7. Lipitor 40 mg at night. 8. Aspirin 81 mg daily. 9. Coreg 3.125 mg twice a day. 10. Lasix 40 mg twice a day. 11. Levothyroxine 25 mcg daily. 12. Ranexa 1000 mg twice a day. 13. Valsartan 40 mg daily. 14. Tamsulosin 0.4 mg daily. 15. Spironolactone 25 mg daily. 16. Guaifenesin ER 600 mg twice a day.
[2017-05-27 15:33] VITALS: BP 112/80; TEMP 97.6
[2017-05-27] MEDS: Warfarin Sodium 3 MG TAB PO SCH (15:55)
--- NOTE | 2017-06-07 14:49 | EKG ---
Test Reason : Blood Pressure : / mmHG Vent. Rate : 102 BPM Atrial Rate : 110 BPM P-R Int : 000 ms QRS Dur : 162 ms QT Int : 346 ms P-R-T Axes : 000 004 018 degrees QTc Int : 450 ms Normal sinus rhythm Left bundle branch block Abnormal ECG Confirmed by ISABELLE ERAZO DO ([id number]), video editor YVONNE ROMERO ([id number]) on 06/07/2017 2:48:46 PM Referred By: Confirmed By:ISABELLE ERAZO DO
== END 2017-05-27 17:49 | DRG 291 ==
LOC: ERS 13:03 → IMCU/EMU 18:05
PROVIDERS: ADMIT Internal Medicine Nephrology; ATTEND Internal Medicine Nephrology
DX: I13.0 Hypertensive heart and chronic kidney disease with heart failure and stage 1 through stage 4 chronic kidney disease, or unspecified chronic kidney disease (principal); J96.21 Acute and chronic respiratory failure with hypoxia; G93.40 Encephalopathy, unspecified; N18.4 Chronic kidney disease, stage 4 (severe); I50.23 Acute on chronic systolic (congestive) heart failure; J98.11 Atelectasis; I48.2 Chronic atrial fibrillation; Z99.81 Dependence on supplemental oxygen; I25.5 Ischemic cardiomyopathy; I25.10 Atherosclerotic heart disease of native coronary artery without angina pectoris; Z79.01 Long term (current) use of anticoagulants; I95.1 Orthostatic hypotension; R62.7 Adult failure to thrive; I25.2 Old myocardial infarction
CPT/HCPCS: 36415; 51701; 70450; 71045; 80048; 80053; 81003; 81015; 82553; 82805; 83605; 83690; 84443; 84484; 85025; 85610; 85730; 87040; 87086; 93005; 93798; 96365; 96366; 96367; 96375; G8978-GP-CM; G8979-GP-CK; G8987-GO-CL; G8988-GO-CJ; J0696; J1940; J1956; J2543; J7050

== ENCOUNTER 2017-06-07 23:32 | Inpatient (IN) | payer MEDICARE ==
[2017-06-07] MEDS ORDERED: Lorazepam 2 MG/ML VIAL ONE (23:44)
[2017-06-08 00:03] LABS: #Lymphocytes 0.7 thou/uL (1.20-3.40); #Monocytes 0.5 thou/uL (0.11-0.59); #Neutrophils 7.3 thou/uL (1.40-6.50); %Basophils 0.1 % (0.0-1.0); %Eosinophils 0.3 % (0.0-10.0); %Lymphocytes 8.6 % (21.0-51.0); %Monocytes 6.3 % (0.0-10.0); %Neutrophils 84.7 % (42.0-75.0); Hemoglobin 8.9 g/dL (14.0-18.0); Mean Corpuscular HGB CONC 32.7 g/dL (32.0-36.0); Mean Corpuscular Hemoglobin 32.5 pg (27.0-31.0); Mean Corpuscular Volume 99.3 fl (80.0-94.0); Mean Platelet Volume 10.5 fL (7.4-10.4); Platelet Count 171 thou/uL (130-400); RBC Distribution Width 15.1 % (11.5-14.5); Red Blood Cell (RBC) Count 2.75 mill/uL (4.70-6.10); White Blood Cell (WBC) Count 8.6 thou/uL (4.8-10.8)
[2017-06-08 00:08] LABS: INR-International Normal Ratio 1.4; PTT 35.3 SEC (22.9-36.1); Prothrombin Time 17.8 SEC (12.0-14.7)
[2017-06-08] MEDS ORDERED: Norepinephrine 8 MG in Sodium Chloride 0.9% 250 ML 250 ML IVPB PRN (00:09)
[2017-06-08] MEDS ORDERED: Piperacillin/Tazobactam 4.5 GM in Sodium Chloride 0.9% 100 ML IVPB SCH (00:15)
[2017-06-08 00:20] LABS: Actual Bicarbonate (HCO3a) 23.9 mEq/L (22-26); Base Excess (BEa) -1.1 mEq/L (0 (+/-) 2.5); CO2 Tension 41.1 mmHg (35.0-45.0); Hematocrit-ABG 25.6 % (42.0-52.0); Hemoglobin (Hb) 8.9 g/dL (14.0-18.0); O2 Tension (PaO2) 156.5 mmHg (80.0-100.0); pH, Arterial 7.38 (7.35-7.45)
[2017-06-08 00:21] LABS: Analyzer IN Cardio ER; Calcium, Ionized 1.1 mmol/L (1.12-1.30); Puncture Site LR
[2017-06-08 00:24] LABS: ALT (SGPT) 13 U/L (8-55); AST (SGOT) 22 U/L (5-34); Acetaminophen Less than 6.0 mcg/mL (10.0-30.0); Albumin 3.4 g/dL (3.4-4.8); Alcohol Less than 10 mg/dL (Less than 10); Alkaline Phosphatase 58 U/L (40-150); Anion Gap 18 mmol/L (10-20); BUN (Urea Nitrogen) 36 mg/dL (8.4-25.7); Bilirubin, Total 1.1 mg/dL (0.2-1.2); CK (CPK) 102 U/L (30-200); Calc. Creatinine Clearance 0 mL/min (70-130); Calcium 8.4 mg/dL (7.8-10.44); Carbon Dioxide 24 mmol/L (23-31); Chloride 104 mmol/L (98-107); Estimated GFR-MDRD 24; Glucose 125 mg/dL (83-110); Lipase 76 U/L (8-78); Magnesium 2.1 mg/dL (1.6-2.6); Potassium 4.5 mmol/L (3.5-5.1); Protein, Total 6.4 g/dL (5.8-8.1); Salicylate Less than 8.0 mg/dL (15.0-30.0); Sodium 141 mmol/L (136-145)
[2017-06-08 00:29] LABS: CKMB 3.2 ng/mL (0-6.6); Troponin I 0.065 ng/mL (< 0.028)
[2017-06-08] MEDS ORDERED: Acetaminophen 325 MG Suppository ONE (01:13)
[2017-06-08] MEDS ORDERED: Acetaminophen 650 MG Suppository ONE (01:13)
[2017-06-08 01:16] LABS: Bilirubin Negative (Negative); Blood, Urine Small (Negative); Clarity CLOUDY (Clear); Glucose, Urine (Dipstick) Negative (Negative); Leukocyte Large (Negative); Nitrite Negative (Negative); Protein, Urine (Dipstick) Negative (Neg-Trace); Specific Gravity, Urine 1.011 (1.002-1.036); Urobilinogen 0.2 mg/dL (0.2-1.0); pH, Urine 6.5 (5.0-9.0)
[2017-06-08 01:17] LABS: Bacteria/HPF None Seen HPF (None Seen); Hyaline Casts/LPF 7-10 HYALINE CAST LPF (0-3 Hyaline); Pathc Cast-AUWi Flag 2.43 (0-2.49); Squamous Epithelial None Seen HPF (0-3)
[2017-06-08 01:19] LABS: Yeast-AUWi Flag 82.9 (0-25.0)
[2017-06-08 01:47] LABS: Renal Epithelial None Seen HPF (0-3); Transitional Epithelial NONE SEEN HPF (0-3); Yeast-All Forms 2+ HPF (None Seen)
[2017-06-08 03:51] LABS: #Lymphocytes 0.6 thou/uL (1.20-3.40); #Monocytes 0.6 thou/uL (0.11-0.59); #Neutrophils 8.3 thou/uL (1.40-6.50); %Basophils 0.2 % (0.0-1.0); %Eosinophils 0.2 % (0.0-10.0); %Lymphocytes 6.6 % (21.0-51.0); %Monocytes 5.9 % (0.0-10.0); %Neutrophils 87.1 % (42.0-75.0); Hemoglobin 9.3 g/dL (14.0-18.0); Mean Corpuscular HGB CONC 31.6 g/dL (32.0-36.0); Mean Corpuscular Hemoglobin 31.7 pg (27.0-31.0); Mean Platelet Volume 10.3 fL (7.4-10.4); Platelet Count 165 thou/uL (130-400); RBC Distribution Width 15.2 % (11.5-14.5); Red Blood Cell (RBC) Count 2.92 mill/uL (4.70-6.10); White Blood Cell (WBC) Count 9.6 thou/uL (4.8-10.8)
[2017-06-08 03:52] LABS: Lactic Acid 1.3 mmol/L (0.5-2.2)
[2017-06-08 03:54] LABS: Anion Gap 13 mmol/L (10-20); BUN (Urea Nitrogen) 35 mg/dL (8.4-25.7); Calc. Creatinine Clearance 0 mL/min (70-130); Calcium 8.4 mg/dL (7.8-10.44); Carbon Dioxide 23 mmol/L (23-31); Chloride 107 mmol/L (98-107); Estimated GFR-MDRD 23; Glucose 149 mg/dL (83-110); Potassium 4.4 mmol/L (3.5-5.1); Sodium 139 mmol/L (136-145)
[2017-06-08] MEDS ORDERED: Ondansetron ODT 4 MG TAB SL PRN (05:07)
[2017-06-08] MEDS ORDERED: Ondansetron HCl/PF 4 MG/2 ML Vial IVP PRN (05:07)
[2017-06-08] MEDS ORDERED: Acetaminophen 325 MG TAB PO PRN (05:07)
[2017-06-08 06:15] VITALS: BMI 19.6
--- NOTE | 2017-06-08 06:59 | HP ---
CHIEF COMPLAINT: Altered mental status. HISTORY OF PRESENT ILLNESS: The patient is an 89-year-old male who was brought in from The [facility] is a long-term. Patient is very altered and is unable to give any history. Most of the histo ry is from records per long-term staff, the patient was at dinner and apparently had one episode o f emesis then became very lethargic. EMS was called and by the time they arrived at the scene, patie nt was having some twitching and possible seizure-like activity. Patient did have some response with some eye contact, but otherwise was not coherent. Shortly after patient had what appeared to be a f airly typical seizure activity. Per EMS had very low blood pressure in the 80s/40s. He continued to be only responsive to pain after this and was taken via EMS to the emergency room. PAST MEDICAL HISTORY: Patient is significant for hypertension, hypothyroidism, coronary artery disea se, atrial fibrillation, hyperlipidemia, and BPH. PAST SURGICAL HISTORY: Patient has had prior surgery for skin cancer as well as hernia repair. SOCIAL HISTORY: Patient currently lives at long-term. Unable to confirm his alcohol or tobacco u se. REVIEW OF SYSTEMS: Unable to obtain as patient is very obtunded. LABORATORY AND X-RAY DATA: CBC: White count was 8.6, H&H 8.9 and 27.3 with a platelet of 171. PT w as 17, INR is 1.4 with PTT of 35. Patient's blood gas, pH of 7.38, pCO2 of 41, pO2 of 156, this was on 3 liters of supplemental face mask. Sodium is 141, potassium 4.5, chloride 104, bicarbonate 24, B UN 36, creatinine 2.5 with a lactic acid of 4.1. Currently pending, chest x-ray and head CT. FAMILY HISTORY: Unable to obtain due to patient's mental status. PHYSICAL EXAMINATION: VITAL SIGNS: Patient's initial blood pressure 83/57, pulse 72, respirations 26, satting 100% on face mask at 6 liters, temperature was 101.6. GENERAL: Patient is obtunded, responds to pain only. HEENT: Pupils are equal, round, reactive to light and accommodation. CARDIOVASCULAR: Regular rate and rhythm. LUNGS: With coarse breath sounds as well. ABDOMEN: Positive bowel sounds, soft, no tenderness elicited. EXTREMITIES: No clubbing, cyanosis, or edema. NEUROLOGIC: Patient does withdraw and respond to pain. Per report from ER, he did open up his eyes at times; but however, currently he is not. ASSESSMENT AND PLAN: 1. Unclear etiology for altered mental status, unclear etiology, possible seizures versus hypotensiv e episode. Head CT is currently pending. Seizure precautions. Patient does have a central line taniya blanca by ER and currently on pressors orders were initiated to maintain map greater than 65. 2. Possible sepsis, unknown source at this time, awaiting a chest x-ray. Antibiotics have been init iated by ER. 3. Code status: DO NOT RESUSCITATE. 4. Coronary artery disease. Patient is on Coreg and Lasix as well as amiodarone, will be on hold fo r now due to blood pressure, same with Ranexa as well as losartan, will be on hold.
--- NOTE | 2017-06-08 08:49 | RAD ---
CHEST 1 VIEW: HISTORY: Chest pain. Followup. COMPARISON: 05/24/17. FINDINGS: Cardiac silhouette is magnified and enlarged. Pulmonary vasculature is upper limits of normal. Patc hy bibasilar infiltrates and bilateral pleural fluid are less pronounced than on the previous exam. Mediastinum is midline with aortic calcification. tire shop manager leads overlie the chest. IMPRESSION: 1. Interval improvement in pulmonary vascular congestion and pleural fluid. 2. Atherosclerosis. POS: RITO
--- NOTE | 2017-06-08 08:55 | CT ---
FINAL REPORT BRAIN CT WITHOUT IV CONTRAST: EMERGENCY AFTER HOURS EXAM TIME: 1:44 a.m. DATE: 06/08/17. COMPARISON: 05/24/17. FINDINGS: Stable atrophy and chronic white matter ischemic change. No mass or bleed or other acute process. POS: RITO
[2017-06-08] MEDS ORDERED: Famotidine/PF 20 mg/2ml Vial SLOW IVP SCH (09:00)
--- NOTE | 2017-06-08 09:59 | RAD ---
CHEST 1 VIEW: HISTORY: Line placement. COMPARISON: Earlier exam on the same date. FINDINGS: Cardiac silhouette remains magnified and enlarged. Mediastinum is midline. The tip of the right int ernal jugular central venous catheter projects over the cavoatrial junction. No evidence of pneumoth orax. ekg monitor tech leads overlie the chest. IMPRESSION: Right internal jugular central venous catheter is in good radiographic position. POS: MARSHA
[2017-06-08] MEDS ORDERED: Sodium Chloride 0.9% 1,000 ML IV SCH (11:45)
[2017-06-08] MEDS ORDERED: Sodium Chloride 0.9% 500 ML IV SCH (13:15)
[2017-06-08] MEDS ORDERED: Sodium Chloride 0.45% 1,000 ML IV SCH (13:15)
[2017-06-08] MEDS ORDERED: Haloperidol Lactate 5 MG/ML VIAL ONE (13:31)
[2017-06-08 13:43] VITALS: TEMP 97.4
[2017-06-08] MEDS ORDERED: Fluconazole In NaCl,Iso-Osm 200 MG in Premix Bag 1 BAG IVPB SCH (14:00)
[2017-06-08] MEDS ORDERED: Haloperidol Lactate 5 MG/ML VIAL IM PRN (14:01)
--- NOTE | 2017-06-08 14:26 | CON ---
DATE OF CONSULTATION: 06/08/2017 SERVICE: Pulmonary Medicine. REASON FOR CONSULTATION: ICU patient. HISTORY OF PRESENT ILLNESS: The patient is an 89-year-old white male, who was brought to us by the [facility] because of altered mentation. He also had low blood pressure in the emergency department. He is having some twitching-like activity , which appears to be extrapyramidal type twitching. It is more of cogwheeling than anything else. Either way, the patient cannot provide any meaningful history. He is currently alert, but oriented x0. He denies any recurrent fevers, chills, nausea or vomiting. He does denies any cough, though he is coughing while I am in the room with him. PAST MEDICAL HISTORY: 1. Hypertension. 2. Hypothyroidism. 3. Coronary artery disease. 4. History of atrial fibrillation. 5. Dyslipidemia. 6. Benign prostatic hypertrophy. 7. Cancer of the right ear. PAST SURGICAL HISTORY: 1. Skin surgery for cancer. 2. Hernia repair. SOCIAL HISTORY: He currently lives in a half-way. Otherwise, no social history can be obtained. FAMILY HISTORY: Noncontributory. REVIEW OF SYSTEMS: The patient currently cannot participate in a significant review of systems. ALLERGIES: No known drug allergies. MEDICATIONS: List of his inpatient and outpatient medications were reviewed. Of note, he is not on any significant centrally acting medications. PHYSICAL EXAMINATION: VITAL SIGNS: Afebrile, pulse 76, blood pressure 109/77, respirations 26, saturation 100% on 40% FiO2 delivered via Ventimask. GENERAL: The patient is awake and alert, in no apparent distress. LUNGS: Reduced air entry. There is a prolonged expiratory phase. No wheezing , rhonchi or other adventitious sounds are appreciated, though he is really not moving enough fair to appreciate these things. HEART: Normal rate, regular. ABDOMEN: Soft, nontender, nondistended. Bowel sounds are positive. MUSCULOSKELETAL: No cyanosis or clubbing. No pitting in the bilateral lower extremities. NEUROLOGIC: Grossly nonfocal. LABORATORY DATA: WBC 9.6, hemoglobin 9.3, platelets 165,000. Neutrophil count is 87%. INR is 1.4. PH of 7.38, pCO2 of 41, pO2 of 156 on 6 liters per minute via the simple facemask. Creatinine is 2.61. Basic metabolic profile is otherwise unremarkable. Lactate was 4.1, but down trending to 1.3. BNP is 2800 , which is below his baseline. Troponin is marginally elevated at 0.065. Liver function studies are unremarkable. Urinalysis is positive for greater than 50 white blood cells, large leukocyte esterase, nitrites however is unremarkable, and there is 2+ yeast. IMAGIN. CT of the brain demonstrates no acute intracranial abnormality. 2. Chest x-ray demonstrates interval placement of right IJ central venous catheter. There are no acute opacifications throughout bilateral lung webb. ASSESSMENT: 1. Dehydration, severe. 2. Hypovolemic shock. 3. Chronic systolic heart failure with a 10% ejection fraction. 4. Acute kidney injury on chronic kidney disease stage 3. PLAN: I am going to discontinue antibiotics. We will watch the cultures and if anything results abnormal, we will get him back on. That being said, my suspicion is that the patient is just simply too volume depleted. We cautiously give him a little bit of fluid. I will give him 500 mL bolus x1, 2 or 3 if he remains on pressors. Pulmonary Critical Care will continue to follow up for the time being. If he is off pressors, he can be transitioned to the telemetry unit. 70 minutes have been devoted to this patient in various activities. I personally reviewed all imaging studies and laboratory data noted within this document. For at least half of this time, I was interacting with the patient at the bedside or coordinating care with the care team. For the remainder of the time I was immediately available to the patient in the hospital unit. DENISE
[2017-06-08] MEDS ORDERED: Nystatin Powder 15 GM BOT TOP SCH (21:00)
--- NOTE | 2017-06-08 23:18 | DIS ---
SUMMARY PRIMARY CARE PHYSICIAN: Dr. Kade Magaña. DATE OF ADMISSION: 06/08/2017 Patient on 06/08/2017. DISCHARGE DIAGNOSES: 1. Hypovolemic shock. 2. Severe dehydration. 3. Acute kidney injury. HOSPITAL COURSE: Mr. Urbina was admitted on 06/08/2017 to the Intensive Care Unit at [facility] for hypovolemic shock secondary to severe dehydration. He also had chronic systol ic congestive heart failure with an ejection fraction of 10%. He was treated with antibiotics and va sopressors. He also received intravenous fluids. He was seen by Pulmonary and Critical Care Medicin e Service. His medical status worsened and he at 1457 hours on 06/08/2017. Many thanks for allowing me participate in your patient care. Please feel free to contact me with an y questions or concerns.
[2017-06-09] MEDS ORDERED: ADMIXTURE FEE CHEMO IVPB SCH (09:00)
[2017-06-09] MEDS ORDERED: [UNRECOGNIZED DRUG - OTHER] IVPB SCH (09:00)
[2017-06-09] MEDS ORDERED: NACL ISO OSM IVPB SCH (09:00)
[2017-06-09] MEDS ORDERED: FLUCONAZOLE IVPB SCH (09:00)
--- NOTE | 2017-06-13 11:04 | PQF ---
ALIE ALVAREZ DAVID [id number] CLINICAL DOCUMENTATION CLARIFICATION FORM: POST DISCHARGE Addendum to original discharge summary date: ____ Late entry note date: __ ALIE ALVAREZ [id number] CECELIA RAMIREZ PLEASE DOCUMENT YOUR RESPONSE BELOW PLEASE FAX RESPONSE BACK TO [phone] YOUR INPUT IS NEEDED TO CORRECTLY CODE A DIAGNOSIS FOR YOUR PATIENT. DATE: 06/13/2017 ATTN: DR. GLORIA Please exercise your independent, professional judgment in responding to the clarification form. Clinical indicators are provided on the bottom of this form for your review Please check appropriate box(s) to clarify if the following diagnosis has been ruled in our ruled out: SEPSIS (CDI/Coding list diagnosis here) [ ] Ruled in diagnosis [ ] Continue to treat [ ] Resolved [ ] Ruled out diagnosis [ ] Cannot rule out diagnosis [ ] Other diagnosis [ X ] Unable to determine In addition, please specify: Present on Admission (POA): [ ] Yes [ ] No [ ] Unable to determine For continuity of documentation, please document condition throughout progress notes and discharge summary. Thank You. CLINICAL INDICATORS - SIGNS / SYMPTOMS / LABS: VITALS: BP: 83/57, PULSE: 72, RESP: 26, TEMP: 101.6 ER: SEPSIS H&P: POSSIBLE SEPSIS, UNKNOWN SOURCE. ANTIBIOTICS HAVE BEEN INITIATED BY ER DS: HYPOVOLEMIC SHOCK ACUTE KIDNEY INJURY RISK FACTORS: ACUTE KIDNEY INJURY DEHYDRATION TREATMENTS: ANTIBIOTICS (This form is maintained as a part of the permanent medical record) 2014 [employer]. All Rights Reserved Crissy Sanchez CCS, HAND TOUCH UP PAINTER-H [email or web address] [phone] DENISE
--- NOTE | 2017-06-13 11:12 | PQF ---
ALIE ALVAREZ MARCIA SENIOR [id number] CLINICAL DOCUMENTATION CLARIFICATION FORM: POST DISCHARGE Addendum to original discharge summary date: ____ Late entry note date: __ DATE: 06/13/2017 ATTN: JUANI Please exercise your independent, professional judgment in responding to the clarification form. Clinical indicators are provided on the bottom of this form for your review Please check appropriate box(s): [ X ] Acute Respiratory Failure: [ ] with Hypoxia[ ] with Hypercapnia [ ] Acute On Chronic Respiratory Failure: [ ] with Hypoxia [ ] with Hypercapnia [ ] Acute Respiratory Failure due to: (etiology) [ ] Acute Respiratory Insufficiency following (if applicable): [ ] trauma [ ] surgery [ ] Chronic Respiratory Failure only [ ] with Hypoxia [ ] with Hypercapnia [ ] Hypoxia [ ] Other diagnosis [ ] Unable to determine In addition, please specify: Present on Admission (POA): [ X ] Yes [ ] No [ ] Unable to determine For continuity of documentation, please document condition throughout progress notes and discharge summary. Thank You. CLINICAL INDICATORS - SIGNS / SYMPTOMS / LABS: ER: RESPIRATORY DISTRESS, PRE-INTERVENTION BREATH SOUNDS DIMINISHED PRE-INTERVENTION OXYGEN SATURATION 100% PATIENT GIVEN ALBUTEROL WITH ATROVENT, SINGLE DOSE NEBULIZER RISK FACTORS: AMI SEPSIS TREATMENTS: Oxygen ANTIBIOTICS CHEST X-RAY (This form is maintained as a part of the permanent medical record) 2014 [employer]. All Rights Reserved Crissy Sanchez, DERRICK, [facility]-H [email or web address] [phone] MTDD
--- NOTE | 2017-06-13 11:19 | PQF ---
ALIE ALVAREZ DAVID [id number] CLINICAL DOCUMENTATION CLARIFICATION FORM: POST DISCHARGE Addendum to original discharge summary date: ____ Late entry note date: __ DATE: 06/13/2017 ATTN: DR. GLORIA Please exercise your independent, professional judgment in responding to the clarification form. Clinical indicators are provided on the bottom of this form for your review Please check appropriate box(s): ____X___ I (concur) with the Wound Care findings as stated below. [ ] Pressure Ulcer: (Stage I: Erythema; Stage II: Partial thickness; Stage III : Full thickness; Stage IV: Necrosis to muscle/bone) [ ] Location: POA: [ ] Yes [ ] No[ ] Unable to determine Stage (I to IV): (Left Right Bilateral N/A ) [ ] Location: POA: [ ] Yes [ ] No[ ] Unable to determine Stage (I to IV): (Left Right Bilateral N/A ) [ ] Location: POA: [ ] Yes [ ] No[ ] Unable to determine Stage (I to IV): (Left Right Bilateral N/A ) [ ] Gangrene present [ ] Yes [ ] ischemic gangrene [ ] gas gangrene [ ] No [ ] No pressure ulcer diagnosis [ ] Deep tissue injury [ ] Other diagnosis [ ] Unable to determine In addition, please specify: Present on Admission (POA): [X ] Yes [ ] No [ ] Unable to determine For continuity of documentation, please document condition throughout progress notes and discharge summary. Thank You. CLINICAL INDICATORS - SIGNS / SYMPTOMS / LABS: ER NOTE: PRESSURE ULCER, STAGE I, LEFT SHOULDER PRESSURE ULCER SACRUM, STAGE I PRESSURE ULCER, RIGHT EAR, STAGE II RISK FACTORS: AMS HX SKIN CANCER TREATMENTS: Wound care consult (This form is maintained as a part of the permanent medical record) 2014 [employer]. All Rights Reserved Crissy Sanchez, DERRICK, TRANSLATIONAL SPECIALIST-H [email or web address] [phone] MTDDivya
--- NOTE | 2017-07-12 18:18 | EKG ---
Test Reason : Blood Pressure : / mmHG Vent. Rate : 131 BPM Atrial Rate : 131 BPM P-R Int : 000 ms QRS Dur : 242 ms QT Int : 558 ms P-R-T Axes : 000 -20 123 degrees QTc Int : 823 ms Undetermined rhythm Left bundle branch block Abnormal ECG Confirmed by GEE NJ ([id number]), editor in chief newspaper BERTO DUNCAN ([id number]) on 07/12/2017 6:18:15 PM Referred By: Confirmed By:GEE NJ
== END 2017-06-08 16:00 | disposition expired | DRG 682 ==
LOC: ERS 23:32 → CCU 06-08 00:49
PROVIDERS: ADMIT Hospitalist; ATTEND Hospitalist
PROC: 02HV33Z Insertion of Infusion Device into Superior Vena Cava, Percutaneous Approach (ICD-10-PCS; principal; 2017-06-08)
DX: N17.9 Acute kidney failure, unspecified (principal); J96.00 Acute respiratory failure, unspecified whether with hypoxia or hypercapnia; R57.1 Hypovolemic shock; L89.121 Pressure ulcer of left upper back, stage 1; I13.0 Hypertensive heart and chronic kidney disease with heart failure and stage 1 through stage 4 chronic kidney disease, or unspecified chronic kidney disease; L89.151 Pressure ulcer of sacral region, stage 1; I50.22 Chronic systolic (congestive) heart failure; L89.892 Pressure ulcer of other site, stage 2; E86.0 Dehydration; N18.3 Chronic kidney disease, stage 3 (moderate); E78.5 Hyperlipidemia, unspecified; E03.9 Hypothyroidism, unspecified; N40.0 Benign prostatic hyperplasia without lower urinary tract symptoms; Z66 Do not resuscitate; I25.10 Atherosclerotic heart disease of native coronary artery without angina pectoris; Z85.828 Personal history of other malignant neoplasm of skin
CPT/HCPCS: 36415; 36416; 36556; 51701; 70450; 71045; 80048; 80053; 80307; 81003; 81015; 82550; 82553; 82805; 83605; 83690; 83735; 83880; 84484; 85025; 85610; 85730; 87040; 87086; 93005; 96365; 96366; 96368; 96375; J1450; J1630; J2060; J2543; J3370; J7050; S0028